=== PATIENT | female | born 1975 | race Caucasian/White ===

== ENCOUNTER 2017-01-04 12:02 | Emergency (ER) | payer BC ==
[2017-01-04] MEDS ORDERED: Ketorolac INJ* 30 MG/ML 1 ML VIAL IV ONE (12:20)
[2017-01-04] MEDS ORDERED: Ondansetron INJ* 2 MG/ML VIAL IV ONE (12:20)
[2017-01-04] MEDS ORDERED: Al Hydrox/Mg Hydrox/Simet LIQ* 30 ML UDC PO ONE (12:25)
[2017-01-04] MEDS ORDERED: Lidocaine 2% VISCOUS* 15 ML UDC PO ONE (12:25)
[2017-01-04] MEDS: NS 0.9% 1000 ML* 2,000 ML IV ONE (12:57)
[2017-01-04 13:11] LABS: Hematocrit 46 % (35-47); Hemoglobin 15.6 g/dl (12.0-16.0); Mean Corpuscular HGB Conc 34 g/dl (31-36); Mean Corpuscular Hemoglobin 30 pg (27-31); Mean Corpuscular Volume 89 fL (80-97); Mean Platelet Volume 9 um3 (7.4-10.4); Red Blood Count 5.18 10^6/ul (4.0-5.4); Red Cell Distribution Width 13 % (10.5-15); White Blood Count 7.9 10^3/ul (3.5-10.8)
[2017-01-04 13:12] LABS: Urine Bilirubin Negative (Negative); Urine Glucose Negative (Negative); Urine Nitrite Negative (Negative)
[2017-01-04 13:26] LABS: ALT 74 U/L (7-52); AST 28 U/L (13-39); Albumin 4.4 g/dL (3.2-5.2); Alkaline Phosphatase 78 U/L (34-104); Anion Gap 6 mmol/L (2-11); BUN/Creatinine Ratio 13.4 (8-20); Blood Urea Nitrogen 11 mg/dL (6-24); C Reactive Protein 2.78 mg/L (< 5.00); CO2 Carbon Dioxide 29 mmol/L (22-32); Chloride 101 mmol/L (101-111); Creatine Kinase 24 U/L (10-223); EGFR African American 99.8 (>60); EGFR Non-African American 77.6 (>60); Globulin 3.5 g/dL (2-4); Glucose 108 mg/dL (70-100); Lipase 34 U/L (11.0-82.0); Potassium 3.7 mmol/L (3.5-5.0); Sodium 136 mmol/L (133-145); Total Protein 7.9 g/dL (6.4-8.9)
--- NOTE | 2017-01-04 13:31 | RAD ---
Indication: Headache, nausea. Cardiac disease with mitral valve regurgitation. Comparison: None. Technique: Upright AP 1230 hours Report: Accounting for superimposed soft tissues the lungs and pleural spaces are clear. Negative for pneumothorax. The heart, pulmonary vasculature, and mediastinal contours are unremarkable. Negative for free air beneath the diaphragm. IMPRESSION: No evidence for acute intrathoracic disease.
[2017-01-04 14:00] LABS: TSH (Thyroid Stimulating Horm) 1.73 mcIU/mL (0.34-5.60)
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
[2017-01-04 16:12] VITALS: BP 125/67
== END 2017-01-04 16:08 | disposition home or self-care (01) ==
LOC: ED 12:02
DX: R10.13 Epigastric pain (principal); R51 Headache; R11.2 Nausea with vomiting, unspecified; R42 Dizziness and giddiness; M54.2 Cervicalgia; H53.8 Other visual disturbances; Z72.0 Tobacco use; R07.9 Chest pain, unspecified
CPT/HCPCS: 36415; 71010; 80053; 81003; 82550; 82553; 83605; 83690; 84443; 84484; 84702; 85025; 85379; 85610; 85730; 86140; 87040; 93005; 96374; 96375; 99283; A9270-GY; J1885; J2405

== ENCOUNTER 2017-11-25 10:51 | Emergency (ER) | payer BC ==
[2017-11-25 11:32] VITALS: BP 117/76
--- NOTE | 2017-11-25 12:35 | UC ---
Throat Pain/Nasal Sukhdev HPI - HPI Summary HPI Summary: SORE THROAT X 6 DAYS + COUGH , CHEST CONGESTION , FEVER, CHILLS, GETTING WORSE TODAY VERY FATIGUE, NECK PAIN , CHLILLS - History of Current Complaint Chief Complaint: UCGeneralIllness Stated Complaint: COUGH,SHOULDER PAIN,BODY ACHES Time Seen by Provider: 11/25/17 11:18 Hx Obtained From: Patient Hx Last Menstrual Period: 11/21/17 Onset/Duration: Gradual Onset, Lasting Days - 6, Still Present Severity: Moderate Pain Intensity: 2 Cough: Nonproductive Associated Signs & Symptoms: Positive: Nasal Discharge, Fever. Negative: Wheezing, Sinus Discomfort, Vomiting, Rash - Allergies/Home Medications Allergies/Adverse Reactions: Allergies Allergy/AdvReac Type Severity Reaction Status Date / Time alcohol Allergy Hives Verified 11/25/17 11:28 diphenhydramine Allergy Tachycardia Verified 11/25/17 11:28 niacin Allergy Flushing Verified 11/25/17 11:31 nitrofurantoin Allergy Unknown Verified 11/25/17 11:31 Reaction Details promethazine [From Phenergan] Allergy Leg Cramps Verified 11/25/17 11:31 Sulfa (Sulfonamide Allergy Unknown Verified 11/25/17 11:31 Antibiotics) Reaction Details decongestants Allergy Intermediate heart races Uncoded 02/22/15 12:01 Home Medications: Home Medications Cholecalciferol (Vitamin D3) [Vitamin D3] 11/25/17 [History] Fenugreek Seed Extract [Fenugreek] 11/25/17 [History] Milk Thistle 150 mg PO 11/25/17 [History] [place]-3 Fatty Acids/Fish Oil [[place] 3 1,000 mg Softgel] 11/25/17 [History] Ondansetron ODT TAB* [Zofran 4 MG Odt TAB*] 11/25/17 [History] Pantoprazole Sodium [Protonix] 11/25/17 [History] Polyethylene Glycol 3350 [Miralax] 11/25/17 [History] Pycnogonol 11/25/17 [History] Sertraline HCl [Zoloft] 50 mg PO 11/25/17 [History] clonazePAM [Klonopin] 0.5 mg PO 11/25/17 [History] PMH/Surg Hx/FS Hx/Imm Hx Previously Healthy: Yes - Surgical History Surgical History: Yes Surgery Procedure, Year, and Place: Lasik eye surgery. TUBES IN EARS - Family History Known Family History: Positive: Hypertension, Diabetes, Other - depression, anxiety, supraventricular tachycardia - Social History Alcohol Use: None Substance Use Type: None Smoking Status (MU): Former Smoker Type: Cigarettes Amount Used/How Often: Some Day Smoker Length of Time of Smoking/Using Tobacco: ON and Off for 10 Years Have You Smoked in the Last Year: No When Did the Patient Quit Smoking/Using Tobacco: ~2007 - Immunization History Most Recent Influenza Vaccination: Not the season Most Recent Tetanus Shot: UTD Review of Systems Constitutional: Fever, Chills, Fatigue Skin: Negative Eyes: Negative ENT: Sore Throat, Nasal Discharge Respiratory: Cough Cardiovascular: Negative Gastrointestinal: Negative Is Patient Immunocompromised?: No All Other Systems Reviewed And Are Negative: Yes Physical Exam Triage Information Reviewed: Yes Appearance: Well-Appearing, No Pain Distress, Well-Nourished Vital Signs: Initial Vital Signs Temp 98.2 F 11/25/17 11:15 Pulse 78 11/25/17 11:15 Resp 16 11/25/17 11:15 BP 117/76 11/25/17 11:15 Pulse Ox 99 11/25/17 11:15 Vital Signs Reviewed: Yes Eyes: Positive: Conjunctiva Clear ENT: Positive: Normal ENT inspection, Hearing grossly normal, Pharynx normal, Nasal congestion, TMs normal Neck: Positive: Supple, Nontender, No Lymphadenopathy Respiratory: Positive: Chest non-tender, Lungs clear, Normal breath sounds Cardiovascular: Positive: RRR, No Murmur, Pulses Normal Abdominal Exam: Normal Abdomen Description: Positive: Nontender, Soft. Negative: CVA Tenderness (R), CVA Tenderness (L), Distended, Guarding Bowel Sounds: Positive: Present Skin Exam: Normal Throat Pain/Nasal Course/Dx - Differential Dx/Diagnosis Provider Diagnoses: VIRAL ILLNESS Discharge - Sign-Out/Discharge Documenting (check all that apply): Discharge - Discharge Plan Condition: Stable Disposition: HOME Patient Education Materials: Viral Syndrome (ED) Forms: *Work Release Referrals: Colt Haque DO [Primary Care Provider] - 5 Days Additional Instructions: NEGATIVE FLU WILL CHECK CBC AND SIMÓN CONT. WITH REST, INCREASE FLUID , TYLENOL NEEDED FOR PAIN AND FEVER FOLLOW UP WITH YOUR PCP IN 5 DAYS IF NOT BETTER - Billing Disposition and Condition Condition: STABLE Disposition: HOME
== END 2017-11-25 12:34 | disposition home or self-care (01) ==
LOC: UCCORT 10:51
DX: B34.9 Viral infection, unspecified (principal); Z88.1 Allergy status to other antibiotic agents; Z88.2 Allergy status to sulfonamides; Z88.8 Allergy status to other drugs, medicaments and biological substances; Z87.891 Personal history of nicotine dependence
CPT/HCPCS: 87502; 99211; G0463

== ENCOUNTER 2019-10-20 08:24 | Emergency (ER) | payer BC ==
--- OUTSIDE RECORDS SUMMARY | 2019-10-20 08:56 | XMS REPORT | Continuity of Care Document ---
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 Unavailable [facility] Allergy & Care Team Information 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 Immunology Problems Active Problems Provider Date Helicobacter pylori Corinne Carbajal MD Onset: 07/20/2012 Panic disorder without agoraphobia Corinne Carbajal MD Onset: 04/20/2012 Overweight Corinne Carbajal MD Onset: 07/08/2011 FH: Cardiovascular disease Corinne Carbajal MD Onset: 01/05/2011 Moderate recurrent major depression Corinne Carbajal MD Onset: 06/26/2010 Mixed hyperlipidemia Corinne Carbajal MD Onset: 07/17/2009 Vitamin D deficiency Corinne Carbajal MD Onset: 07/17/2009 Generalized anxiety disorder Corinne Carbajal MD Onset: 07/17/2009 Pure hypercholesterolemia Colt Haque DO Onset: 10/27/2014 Neck pain Colt Haque DO Onset: 10/28/2014 Viral disease Onset: 08/05/2015 Near syncope Onset: 03/26/2015 Rhabdomyolysis Onset: 03/26/2015 Social History Type Date Description Comments Sex Unknown Tobacco Use Start: Unknown End: Unknown Former Cigarette Smoker ETOH Use Rarely consumes alcohol Tobacco Use Start: Unknown End: Unknown Patient is a former smoker Allergies, Adverse Reactions, Alerts Active Allergies Reaction Severity Comments Date Phenergan Restless Leg Syndrome 07/08/2011 Macrobid 07/08/2011 Dust 04/17/2009 Niacin 04/17/2009 Hay Fever 2014 Mold 2014 Sulfa Drugs 2014 Promethazine HCL 08/05/2015 Nitrofurantoin Macrocrystal 08/05/2015 Sulfa (Sulfonamide Antibiotics) 08/05/2015 Nitrofurantoin 08/05/2015 Almonds 11/06/2018 Cat Dander 11/06/2018 Dog Dander 11/06/2018 Medications Active Medications SIG Qnty Indications Ordering Date Provider Tizanidine HCL take 1 capsule by 10caps Colt Haque, 08/26/2019 2mg mouth as needed DO Capsules for muscle spasm Pkdsr-[id number]-Evax Ethyl Take 2 Capsules 60caps Colt Haque, 07/09/2019 Esters By Mouth Every DO 1gm Capsules Day Sertraline HCL 1 tab by mouth 45tabs Colt aHque, 07/02/2019 100mg every day DO Tablets Mirtazapine 1 po qhs 30tabs Colt Haque, 06/01/2019 7.5mg Tablets DO Famotidine take 1 tablet by 30tabs Colt Haque, 05/18/2019 20mg Tablets mouth daily DO Levocetirizine Take 1 Tablet By 30tabs J30.9 Colt Haque, 01/22/2019 Dihydrochloride Mouth Every Day DO 5mg as Needed Tablets Polyethylene Glycol mix one packet in 84units Colt Haque, 01/04/2019 3350 eight ounces of DO 3350NF Packet water every day as needed for constipation, hold for diarrhea Atorvastatin Calcium Take 1 Tablet By 30tabs Colt Haque, 11/27/2018 10mg Mouth Every Day DO Tablets In The Evening Clonazepam 1 by mouth twice 60tabs Colt Haque, 07/24/2018 0.5mg Tablets a day as needed DO anxiety Metoclopramide HCL take 1 tablet by 28tabs Colt Haque, 07/02/2018 10mg mouth 4 times DO Tablets daily as needed for nausea Ondansetron dissolve one 30tabs Colt Haque, 06/11/2018 4mg Tablets tablet on tongue DO Dispers up to every 8 hours as needed for nausea Pantoprazole Sodium take 1 tablet by 90tabs Colt Haque, 06/26/2017 40mg mouth every day DO Tablets DR Vitamin D3 Complete takes 5000 iu qd 30tabs Colt Haque, 12/27/2016 DO Tablets Alprazolam 1/2 to 1 by mouth 60tabs Colt Haque, 11/09/2015 0.5mg Tablets as needed for DO panic attack Coconut Oil Unknown 1000mg Capsules Desiccated Beef Liver Unknown Powder Magnesium 1 by mouth every Unknown 400mg Tablets day Mometasone Furoate 2 sprays each Unknown nostril every day 50mcg/Act Suspension Diphenhydramine HCL 1 by mouth as Unknown 25mg needed Capsules [place] 3-6-9 Complex Includes Co-q10 Unknown and Red Yeast Capsules Rice Takes one tab bid Saline Nasal [place] 1-2sprays as Unknown 0.65% needed congestion Solution History Medications Zoloft 1 po daily 30tabs Colt Haque DO 09/10/2019 - 100mg Tablets 09/09/2019 Ketoconazole apply to hair 120ml Colt Haque DO 07/30/2019 - 2% Shampoo twice a week for 08/29/2019 up to 4 weeks Fluconazole 1 by mouth x 1, 2tabs Colt Haque, 07/13/2019 - 150mg Tablets then repeat again 07/18/2019 5 days later if needed. Doxycycline 1 by mouth twice 14tabs Colt Haque DO 06/18/2019 - Monohydrate a day 06/25/2019 100mg Tablets Hydroxyzine HCL take one by mouth 30tabs Colt Haque DO 06/07/2019 - 10mg tid as needed for 07/09/2019 Tablets anxiety Sertraline HCL 1 by mouth every 30tabs Colt Haque DO 06/04/2019 - 50mg day 07/02/2019 Tablets Propranolol HCL 1 by mouth twice 60tabs Colt Haque DO 05/21/2019 - 20mg a day 06/02/2019 Tablets Drospirenone-Ethinyl 1 by mouth every 28tabs Colt Haque DO 2018 - Estradiol day 07/30/2019 3-0.02mg Tablets Duloxetine HCL Take 1 Capsule By Colt Llanos, DO 03/26/2019 - 20mg Caps Mouth Every Day 05/25/2019 DR Ayoub Immunizations CPT Code Status Date Vaccine Lot # [id number] Given 07/22/2018 Influenza Vac, Quadrivalent, Split, 0.5mL Dosage, Im Use [id number] Given 07/05/2016 Flu Vaccine NOS 35006 Given 11/25/2014 Tdap (Adacel) Ages 7 And Above Only 48498 Given 11/25/2014 Tdap (Adacel) Ages 7 And Above Only [id number] Given 05/19/2012 Afluria Or Fluvirin Flu Vac Intramuscular 36362 Given 07/08/2011 Afluria Or Fluvirin Flu Vac Intramuscular 52183 Given 07/01/2010 Afluria Or Fluvirin Flu Vac Intramuscular Vital Signs Date Vital Result Comment 09/24/2019 4:49pm Heart Rate 78 /min BP Systolic 124 mmHg BP Diastolic 74 mmHg Respiratory Rate 18 /min 09/10/2019 4:42pm Heart Rate 88 /min BP Systolic 126 mmHg BP Diastolic 76 mmHg Respiratory Rate 18 /min O2 % BldC Oximetry 98 % Ra Results Test Acquired Date Facility Test Result H/L Range Note GC/Chlamydia 07/15/2019 [facility] GCCHL Disclaimer (SEE NOTE) 1, 2 Amplified Rna Chlamydia trachomatis Geraldine Negative Negative Neisseria gonorrhoeae (GC) Geraldine Negative Negative Laboratory test 07/15/2019 [facility] Gardnerella/Yeast: SEE RESULT 3 finding Vaginal Dna BELOW CBC with Auto 05/24/2019 [facility] White Blood Count 7.0 K/uL Normal 3.1- 4 Diff-fcmg (315)- - 10.7 Red Blood Count 4.44 M/uL Normal 3.90-5.40 Hemoglobin 13.6 gm/dL Normal 11.6-15.8 Hematocrit 40.6 % Normal 36.0-46.1 Mean Cell Volume 91.4 fl Normal 80.9-99.0 Mean Corpuscular HGB 30.6 pg Normal 25.9-32.7 Mean Corpuscular HGB Conc 33.5 g/dL Normal 30.8-34.3 Platelet Count 324 K/uL Normal 155-360 Red Cell Distri Width SD 40.4 fl Normal 36-47 Red Cell Distri Width %CV 12.1 % Normal 11.7-14.4 Mean Platelet Volume 11.1 fl Normal 8.9-12.4 Neut% 55.3 % Normal 40.4-72.8 Lymph % 36.0 % Normal 20.0-42.0 Beltrami % 6.4 % Normal 4.3-13.2 Eo% 1.6 % Normal 0.0-6.6 Bas% 0.6 % Normal 0.0-1.1 Immature Grans 0.1 % Normal 0.0-5.0 NRBC % 0.0 /100WBC < 10/ 100 WBC Neut# 3.87 K/uL Normal 1.8-7.0 Lymph # 2.52 K/uL Normal 1.0-4.0 Beltrami # 0.45 K/uL Normal 0.3-0.9 Eos # 0.11 K/uL Normal 0.0-0.5 Baso # 0.04 K/uL Normal 0.0-0.1 Immature Grans Absolute 0.01 K/uL NRBC # 0.00 K/uL Comprehensive 05/24/2019 [facility] Glucose 94 mg/dL Normal 74-106 Metabolic Panel (315)- - BUN 13 mg/dL Normal 7-18 Creatinine 0.8 mg/dL Normal 0.6-1.3 Glom Filtration Rate, Estimate >60 mL/min >60 If >60 mL/min >60 5 BUN/Creat 16.2 ratio Sodium 140 mmol/L Normal 136-145 Potassium 4.0 mmol/L Normal 3.5-5.1 Chloride 105 mmol/L Normal 98-107 Carbon Dioxide 27 mmol/L Normal 21-32 Anion Gap 8 mEq/L Normal 8-16 Calcium 9.5 mg/dL Normal 8.5-10.1 Total Protein 7.5 g/dL Normal 6.4-8.2 Albumin 3.6 g/dL Normal 3.4-5.0 Globulin 3.9 g/dL Normal 1.9-4.3 Alb/Glob 0.9 ratio Bilirubin,Total 0.3 mg/dL Normal 0.2-1.0 Sgot/Ast 11 U/L Low 15-37 6 SGPT/Alt 22 U/L Normal 12-78 Alkaline Phosphatase 67 U/L Normal 45-117 Laboratory test 05/24/2019 [facility] Magnesium 2.1 mg/ dL Normal 1.8-2.4 finding (315)- - LDL Cholesterol 05/24/2019 [facility] Cholesterol 195 mg/ dL <200 7 Profile (315)- - Triglycerides 345 mg/dL High <150 8 HDL Cholesterol 52 mg/dL >40 9 LDL-Cholesterol 74 mg/dL < 100 10 Laboratory 05/24/2019 [facility] Thyroid 3.89 uIU/mL Normal 0.30-4.20 test finding (315)- - Stim Hormone Laboratory 05/24/2019 [facility] Vitamin 29.9 ng/mL Low 30.0-100.0 11 test finding (315)- - D,25-Hydrox y Laboratory 05/24/2019 [facility] Cortisol,Ra 46.2 g/dL . 12 test finding (315)- - ndom Laboratory 04/12/2019 [facility] 13 test finding [phone] Allia <SEE NOTE> Laboratory 04/12/2019 [facility] Pap Smear SEE NOTE 14 test finding Thin Prep 1 [id number] 2 As with all diagnostic procedures, the laboratory results obtained should be used in conjunction with other clinical information available to the physician, including confirmation by another method, as applicable. 3 SEE RESULT BELOW Name: THU VELASQUEZ : [address]: Colt Haque DO Acct: [id number] Unit: [id number] AGE: 43 Location: [facility] Re07/15/19 SEX: F Status: REG REF SPEC: [id number] DEANNA: 07/15/[address]: Colt Haque DO REQ: [id number] RECD: 07/15/19 STATUS:COMP _ [facility]: Pedrito,Yeast DNA, Trich DNA COMMENTS: [id number] QUERIES: Would you like to order Trichomonas Vaginalis testing? Yes Procedure Result Reported Site Gardnerella/Yeast: Vaginal DNA Final 07/16/19- 1349 ML Organism 1 POSITIVE GARDNERELLA Organism 2 Negative Pamela The presence of G. vaginalis, although suggestive, is not diagnostic for bacterial vaginosis. Results should be interpreted in conjuction with other clinical and laboratory data available. Women with vaginal discharge should be evaluated for risk factors of cervicitis and pelvic inflammatory disease, toxic shock syndrome (S.aureus), and if present, evaluated for organisms not included in this assay such as N. gonorrhoeae, C. trachomatis, Mobiluncus, Mycoplasma and/or Prevotella. Mixed infections may occur. The performance of this test on patient specimens collected during or immediately after antimicrobial therapy is unknown. The presence or absence of Pamela species, or G. vaginalis cannot be used as a test for therapeutic success or failure. Trichomonas: Vaginal DNA Probe Final 07/16/19- 1349 ML Organism 1 Negative Trichomonas CONTINUED ON NEXT PAGE DEPARTMENT OF PATHOLOGY, [address] [place] [address] Efrain Chen M.D. Director GET # [id number] Patient: THU VELASQUEZ [id number] (Continued) Specimen: [id number] Collected: 07/15/19 Received: 07/15/19 (Continued) Procedure Result Reported Site Trichomonas: Vaginal DNA Probe Final (continued) 07/16/19 3221 The presence or absence of T. vaginalis cannot be used as a test for therapeutic success or failure. * ML - Main Lab . END OF REPORT DEPARTMENT OF PATHOLOGY, [address] [place] [address] Efrain Chen M.D. Director [facility] # [id number] 4 I95.9 5 Note: Persistent reduction for 3 months or more in an eGFR <60 mL/min/1.73 m2 defines CKD. Patients with eGFR values >/=60 mL/min/1.73 m2 may also have CKD if evidence of persistent proteinuria is present. The original MDRD equation for estimated GFR is not valid for patients less than 18 years of age. Additional information may be found at www.kdoqi.org. 6 Values below the stated reference ranges of AST and ALT can be seen in normal populations. Clinical correlation is suggested. 7 Reference Guidelines*: Desirable: ........... < 200 mg/dL Borderline High: ..... 200-239 mg/dL High: ................ >= 240 mg/dL * The National Cholesterol Education Program (NCEP) 8 Reference Guidelines*: Normal: ............. < 150 mg/dL Borderline High: .... 150-199 mg/dL High: ............... 200-499 mg/dL Very High: .......... > 500 mg/dL * Source: National Cholesterol Education Program (NCEP) 9 Reference Guidelines*: Low HDL: ..... < 40 mg/dL Normal: ..... 40-60 mg/dL Desirable: ... > 60 mg/dL *The National Cholesterol Education Program(NCEP) 10 Reference Guidelines*: Optimal:........... <100 mg/dL Near Optimal....... 100-129 mg/dL Borderline High.... 130-159 mg/dL High............... 160-189 mg/dL Very High.......... >=190 mg/dL * Source: National Cholesterol Education Program (NCEP) 11 Vitamin D deficiency has been defined by the [place] of [employer] and an Endocrine Society practice guideline as a level of serum 25-OH vitamin D less than 20 ng/mL (1,2). The Endocrine Society went on to further define vitamin D insufficiency as a level between 21 and 29 ng/mL (2). 1. IOM ([place] [employer]). 2010. Dietary reference intakes for calcium and D. [place]: The National Academies Press. 2. Jordin MORE, Philip PERDUE, Verna SMITH, et al. Evaluation, treatment, and prevention of vitamin D deficiency: an Endocrine Society clinical practice guideline. JCEM. 2010; 96(7):1911-30. Performed at: RN - [facility] [address] [id number] [employer]: Jackie Krishna MD, Phone: [phone] Cortisol AM 6.2 - 19.4 Cortisol PM 2.3 - 11.9 Performed at: RN - [facility] [address] [id number] [employer]: Jackie Krishna MD, Phone: [phone] [address] [place] [address] Amplified Molecular High Risk HPV Test Patient Name:THU VELASQUEZ Patient :1975 Ordering Physician:[place] Accession Number [id number] Specimen(s) Received A: High Risk HPV Thin Prep Cervical Pap Smear - One Vial Other Case Numbers: [id number] Diagnosis RISK GROUPS RESULTS High Risk NEGATIVE Tested for HPV Types (16, 18, 31, 33, 35, 39, 45, 51, 52, 56, 58, 59, 66, 68) Reported: 04/15/2019 09:20 Electronically Signed Out By Mag Wheeler blas Derek Napieres 14 [facility] [employer] [facility]. [facility] [place] [address] CYTOLOGY REPORT Source of Specimen(s): Thin Prep Cervical Pap Smear - One Vial Date of Last Menstrual Period: 03/08/19 Other Clinical Conditions: Last Smear Date: 08/2017 Normal HPV ASSAY REQUESTED Specimen Adequacy SATISFACTORY FOR EVALUATION ABSENCE OF ENDOCERVICAL/TRANSFORMATION ZONE COMPONENT General Categorization NEGATIVE FOR INTRAEPITHELIAL LESION OR MALIGNANCY Interpretation NEGATIVE FOR INTRAEPITHELIAL LESION OR MALIGNANCY Endometrial cells Comment HPV testing will be performed and a separate report will be issued. Reported: 04/14/2019 10:00 Electronically Signed Out By Vonnie Madden CT(ASCP) dandy Benson CT(ASCP) DANDY ICD9 Code: Z01.419 CPT code: A: DX692E QC Reviewed: Y Unless otherwise specified, testing performed by [address] [id number] Procedures Date Code Description Status 09/24/2019 60605 Omt 3-4 Body Regions Completed 09/10/2019 85542 Omt 3-4 Body Regions Completed 08/20/2019 61312 Omt 3-4 Body Regions Completed 07/30/2019 47005 Omt 3-4 Body Regions Completed 07/09/2019 23691 Omt 3-4 Body Regions Completed 06/18/2019 31213 Omt 3-4 Body Regions Completed 05/21/2019 19685 Omt 3-4 Body Regions Completed 04/29/2019 98502 Omt 3-4 Body Regions Completed 03/26/2019 78829 Omt 3-4 Body Regions Completed 01/06/2019 [id number] Mammogram Completed 02/12/2017 [id number] Colonoscopy Completed Medical Devices Description No Information Available Encounters Type Date Location Provider Dx Diagnosis Office Visit 09/24/2019 [facility] Colt Haque DO F33.1 Major depressive 4:15p disorder, recurrent, moderate F41.0 Panic disorder [episodic paroxysmal anxiety] R00.0 Tachycardia, unspecified I95.9 Hypotension, unspecified R06.02 Shortness of breath J32.9 Chronic sinusitis, unspecified M54.2 Cervicalgia E78.2 Mixed hyperlipidemia M99.01 Segmental and somatic dysfunction of cervical region I34.1 Nonrheumatic mitral (valve) prolapse K59.00 Constipation, unspecified K21.9 Gastro-esophageal reflux disease without esophagitis F41.1 Generalized anxiety disorder Office Visit 08/20/2019 4:15p [facility] Colt Haque DO F41.1 Generalized anxiety disorder F41.0 Panic disorder [episodic paroxysmal anxiety] F33.1 Major depressive disorder, recurrent, moderate Z87.891 Personal history of nicotine dependence G47.9 Sleep disorder, unspecified M99.01 Segmental and somatic dysfunction of cervical region R00.0 Tachycardia, unspecified I95.9 Hypotension, unspecified E78.2 Mixed hyperlipidemia J32.9 Chronic sinusitis, unspecified M99.07 Segmental and somatic dysfunction of upper extremity M54.2 Cervicalgia R06.02 Shortness of breath K21.9 Gastro-esophageal reflux disease without esophagitis K59.00 Constipation, unspecified I34.1 Nonrheumatic mitral (valve) prolapse L21.9 Seborrheic dermatitis, unspecified Office Visit 07/30/2019 4:15p [facility] Colt Haque DO F41.1 Generalized anxiety disorder F41.0 Panic disorder [episodic paroxysmal anxiety] F33.1 Major depressive disorder, recurrent, moderate R00.0 Tachycardia, unspecified I95.9 Hypotension, unspecified E78.2 Mixed hyperlipidemia R06.02 Shortness of breath K21.9 Gastro-esophageal reflux disease without esophagitis K59.00 Constipation, unspecified M99.01 Segmental and somatic dysfunction of cervical region M99.00 Segmental and somatic dysfunction of head region M99.07 Segmental and somatic dysfunction of upper extremity I34.1 Nonrheumatic mitral (valve) prolapse M54.2 Cervicalgia L21.9 Seborrheic dermatitis, unspecified Office Visit 07/09/2019 4:15p [facility] Colt Haque DO F41.1 Generalized anxiety disorder F41.0 Panic disorder [episodic paroxysmal anxiety] F33.1 Major depressive disorder, recurrent, moderate R00.0 Tachycardia, unspecified I95.9 Hypotension, unspecified E78.2 Mixed hyperlipidemia R06.02 Shortness of breath K21.9 Gastro-esophageal reflux disease without esophagitis K59.00 Constipation, unspecified M99.01 Segmental and somatic dysfunction of cervical region M99.00 Segmental and somatic dysfunction of head region M99.07 Segmental and somatic dysfunction of upper extremity I34.1 Nonrheumatic mitral (valve) prolapse M54.2 Cervicalgia Z68.28 Body mass index (BMI) 28.0-28.9, adult Office Visit 06/18/2019 4:15p [facility] Colt Haque DO F41.1 Generalized anxiety disorder F41.0 Panic disorder [episodic paroxysmal anxiety] F33.1 Major depressive disorder, recurrent, moderate R00.0 Tachycardia, unspecified I95.9 Hypotension, unspecified E78.2 Mixed hyperlipidemia R06.02 Shortness of breath K21.9 Gastro-esophageal reflux disease without esophagitis K59.00 Constipation, unspecified I34.1 Nonrheumatic mitral (valve) prolapse M54.2 Cervicalgia M72.2 Plantar fascial fibromatosis H81.10 Benign paroxysmal vertigo, unspecified ear G47.00 Insomnia, unspecified M99.01 Segmental and somatic dysfunction of cervical region J01.90 Acute sinusitis, unspecified Z68.28 Body mass index (BMI) 28.0-28.9, adult Office Visit 06/04/2019 4:15p [facility] Colt Haque DO F41.1 Generalized anxiety disorder F41.0 Panic disorder [episodic paroxysmal anxiety] F33.1 Major depressive disorder, recurrent, moderate R00.0 Tachycardia, unspecified I95.9 Hypotension, unspecified E78.2 Mixed hyperlipidemia R06.02 Shortness of breath K21.9 Gastro-esophageal reflux disease without esophagitis K59.00 Constipation, unspecified I34.1 Nonrheumatic mitral (valve) prolapse M54.2 Cervicalgia M72.2 Plantar fascial fibromatosis H81.10 Benign paroxysmal vertigo, unspecified ear G47.00 Insomnia, unspecified 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 M99.01 Segmental and somatic dysfunction of cervical region Z68.28 Body mass index (BMI) 28.0-28.9, adult Office Visit 05/21/2019 4:15p [facility] Colt Haque DO F41.1 Generalized anxiety disorder F41.0 Panic disorder [episodic paroxysmal anxiety] F33.1 Major depressive disorder, recurrent, moderate R00.0 Tachycardia, unspecified I95.9 Hypotension, unspecified E78.2 Mixed hyperlipidemia R06.02 Shortness of breath K21.9 Gastro-esophageal reflux disease without esophagitis K59.00 Constipation, unspecified M99.01 Segmental and somatic dysfunction of cervical region I34.1 Nonrheumatic mitral (valve) prolapse M54.2 Cervicalgia M72.2 Plantar fascial fibromatosis H81.10 Benign paroxysmal vertigo, unspecified ear Z68.28 Body mass index (BMI) 28.0-28.9, adult Office Visit 04/12/2019 8:30a [facility] Low Gómez PA Z01.419 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 (general) (routine) w/o abn findings F33.1 Major depressive disorder, recurrent, moderate Office Visit 03/26/2019 4:15p [facility] Colt Haque DO F41.1 Generalized anxiety disorder F41.0 Panic disorder [episodic paroxysmal anxiety] F33.1 Major depressive disorder, recurrent, moderate R00.0 Tachycardia, unspecified I95.9 Hypotension, unspecified E78.2 Mixed hyperlipidemia R06.02 Shortness of breath K21.9 Gastro-esophageal reflux disease without esophagitis K59.00 Constipation, unspecified M99.01 Segmental and somatic dysfunction of cervical region I34.1 Nonrheumatic mitral (valve) prolapse M54.2 Cervicalgia H81.10 Benign paroxysmal vertigo, unspecified ear Z68.28 Body mass index (BMI) 28.0-28.9, adult Assessments Date Code Description Provider 09/24/2019 F33.1 Major depressive disorder, recurrent, moderate Colt Haque, 09/24/2019 F41.0 Panic disorder [episodic paroxysmal anxiety] Colt Haque , 09/24/2019 R00.0 Tachycardia, unspecified Colt Haque, 09/24/2019 I95.9 Hypotension, unspecified HaqueColt blackburn, DO 09/24/2019 R06.02 Shortness of breath Colt Haque, 09/24/2019 J32.9 Chronic sinusitis, unspecified Colt Haque, DO 09/24/2019 M54.2 Cervicalgia Colt Haque, 09/24/2019 E78.2 Mixed hyperlipidemia Colt Haque, DO 09/24/2019 M99.01 Segmental and somatic dysfunction of cervical Haque, Colt, DO region 09/24/2019 I34.1 Nonrheumatic mitral (valve) prolapse Haque, Colt, DO 09/24/2019 K59.00 Constipation, unspecified Haque, Colt, DO 09/24/2019 K21.9 Gastro-esophageal reflux disease without Haque, Colt, DO esophagitis 09/24/2019 F41.1 Generalized anxiety disorder Haque, Colt, DO 09/10/2019 F33.1 Major depressive disorder, recurrent, moderate Haque, Colt, DO 09/10/2019 F41.0 Panic disorder [episodic paroxysmal anxiety] Haque, Colt , DO 09/10/2019 R00.0 Tachycardia, unspecified Haque, Colt, DO 09/10/2019 I95.9 Hypotension, unspecified Haque, Colt, DO 09/10/2019 R06.02 Shortness of breath Haque Colt, DO 09/10/2019 J32.9 Chronic sinusitis, unspecified Haque, Colt, DO 09/10/2019 G47.9 Sleep disorder, unspecified Haque, Colt, DO 09/10/2019 L21.9 Seborrheic dermatitis, unspecified Haque, Colt, DO 09/10/2019 M54.2 Cervicalgia Haque, Colt, DO 09/10/2019 E78.2 Mixed hyperlipidemia Haque, Colt, DO 09/10/2019 M26.601 RIGHT temporomandibular joint disorder, Haque, Colt, DO unspecified 09/10/2019 M99.01 Segmental and somatic dysfunction of cervical Haque, Colt, DO region 09/10/2019 I34.1 Nonrheumatic mitral (valve) prolapse HaqueColt, DO 09/10/2019 K59.00 Constipation, unspecified Haque, Colt, DO 09/10/2019 K21.9 Gastro-esophageal reflux disease without Haque, Colt, DO esophagitis 09/10/2019 F41.1 Generalized anxiety disorder HaqueColt, DO 08/20/2019 F41.1 Generalized anxiety disorder Haque, Colt, DO 08/20/2019 F41.0 Panic disorder [episodic paroxysmal anxiety] Haque, Colt , DO 08/20/2019 F33.1 Major depressive disorder, recurrent, moderate Haque, Colt, DO 08/20/2019 Z87.891 Personal history of nicotine dependence Colt Haque, DO 08/20/2019 G47.9 Sleep disorder, unspecified Haque, Colt, DO 08/20/2019 M99.01 Segmental and somatic dysfunction of cervical HaqueColt, DO region 08/20/2019 R00.0 Tachycardia, unspecified Haque, Colt, DO 08/20/2019 I95.9 Hypotension, unspecified Haque, Colt, DO 08/20/2019 E78.2 Mixed hyperlipidemia Haque, Colt, DO 08/20/2019 J32.9 Chronic sinusitis, unspecified Haque, Colt, DO 08/20/2019 M99.07 Segmental and somatic dysfunction of upper Haque, Colt , DO extremity 08/20/2019 M54.2 Cervicalgia Colt aHque, DO 08/20/2019 R06.02 Shortness of breath Colt Haque, DO 08/20/2019 K21.9 Gastro-esophageal reflux disease without Haque, Colt, DO esophagitis 08/20/2019 K59.00 Constipation, unspecified Haque, Colt, DO 08/20/2019 I34.1 Nonrheumatic mitral (valve) prolapse Colt Haque, DO 08/20/2019 L21.9 Seborrheic dermatitis, unspecified Haque, Colt, DO 07/30/2019 F41.1 Generalized anxiety disorder HaqueSaurabhew, DO 07/30/2019 F41.0 Panic disorder [episodic paroxysmal anxiety] HaqueColt , DO 07/30/2019 F33.1 Major depressive disorder, recurrent, moderate Haque, Colt, DO 07/30/2019 R00.0 Tachycardia, unspecified Haque, Colt, DO 07/30/2019 I95.9 Hypotension, unspecified Haque, Colt, DO 07/30/2019 E78.2 Mixed hyperlipidemia Haque, Colt, DO 07/30/2019 R06.02 Shortness of breath HaqueColt, DO 07/30/2019 K21.9 Gastro-esophageal reflux disease without Haque, Colt, DO esophagitis 07/30/2019 K59.00 Constipation, unspecified Haque, Colt, DO 07/30/2019 M99.01 Segmental and somatic dysfunction of cervical HaqueColt blackburn, region 07/30/2019 M99.00 Segmental and somatic dysfunction of head HaqueColt blackburn, DO region 07/30/2019 M99.07 Segmental and somatic dysfunction of upper HaqueColt blackburn , DO extremity 07/30/2019 I34.1 Nonrheumatic mitral (valve) prolapse Colt Haque, DO 07/30/2019 M54.2 Cervicalgia Colt Haque, DO 07/30/2019 L21.9 Seborrheic dermatitis, unspecified HaqueColt blackburn, DO 07/09/2019 F41.1 Generalized anxiety disorder Colt Haque, DO 07/09/2019 F41.0 Panic disorder [episodic paroxysmal anxiety] Colt Haque , DO 07/09/2019 F33.1 Major depressive disorder, recurrent, moderate Colt Haque, DO 07/09/2019 R00.0 Tachycardia, unspecified Colt Haque, DO 07/09/2019 I95.9 Hypotension, unspecified Colt Haque, DO 07/09/2019 E78.2 Mixed hyperlipidemia Colt Haque, DO 07/09/2019 R06.02 Shortness of breath Colt Haque, DO 07/09/2019 K21.9 Gastro-esophageal reflux disease without HaqueColt, DO esophagitis 07/09/2019 K59.00 Constipation, unspecified Colt Haque, DO 07/09/2019 M99.01 Segmental and somatic dysfunction of cervical HaqueColt blackburn, region 07/09/2019 M99.00 Segmental and somatic dysfunction of head HaqueColt blackburn, DO region 07/09/2019 M99.07 Segmental and somatic dysfunction of upper HaqueColt blackburn , extremity 07/09/2019 I34.1 Nonrheumatic mitral (valve) prolapse Colt Haque, DO 07/09/2019 M54.2 Cervicalgia Colt Haque, DO 07/09/2019 Z68.28 Body mass index (BMI) 28.0-28.9, adult Colt Haque, DO 06/18/2019 F41.1 Generalized anxiety disorder Colt Haque, DO 06/18/2019 F41.0 Panic disorder [episodic paroxysmal anxiety] HaqueColt blackburn , DO 06/18/2019 F33.1 Major depressive disorder, recurrent, moderate Haque, Colt, DO 06/18/2019 R00.0 Tachycardia, unspecified Haque, Colt, DO 06/18/2019 I95.9 Hypotension, unspecified Haque, Colt, DO 06/18/2019 E78.2 Mixed hyperlipidemia Haque, Colt, DO 06/18/2019 R06.02 Shortness of breath Haque, Colt, DO 06/18/2019 K21.9 Gastro-esophageal reflux disease without Haque, Colt, DO esophagitis 06/18/2019 K59.00 Constipation, unspecified Haque, Colt, DO 06/18/2019 I34.1 Nonrheumatic mitral (valve) prolapse Haque, Colt, DO 06/18/2019 M54.2 Cervicalgia HaqueColt, DO 06/18/2019 M72.2 Plantar fascial fibromatosis Haque, Colt, DO 06/18/2019 H81.10 Benign paroxysmal vertigo, unspecified ear Haque, Colt , DO 06/18/2019 G47.00 Insomnia, unspecified Haque, Colt, DO 06/18/2019 M99.01 Segmental and somatic dysfunction of cervical Haque, Colt, DO region 06/18/2019 J01.90 Acute sinusitis, unspecified Haque, Colt, DO 06/18/2019 Z68.28 Body mass index (BMI) 28.0-28.9, adult HaqueColt, DO 06/04/2019 F41.1 Generalized anxiety disorder Haque, Colt, DO 06/04/2019 F41.0 Panic disorder [episodic paroxysmal anxiety] Haque, Colt , DO 06/04/2019 F33.1 Major depressive disorder, recurrent, moderate Haque, Colt, DO 06/04/2019 R00.0 Tachycardia, unspecified Haque, Colt, DO 06/04/2019 I95.9 Hypotension, unspecified Haque, Colt, DO 06/04/2019 E78.2 Mixed hyperlipidemia Haque, Colt, DO 06/04/2019 R06.02 Shortness of breath Haque Colt, DO 06/04/2019 K21.9 Gastro-esophageal reflux disease without Haque, Colt, DO esophagitis 06/04/2019 K59.00 Constipation, unspecified HaqueColt blackburn, DO 06/04/2019 I34.1 Nonrheumatic mitral (valve) prolapse Colt Haque, DO 06/04/2019 M54.2 Cervicalgia HaqueColt blackburn, DO 06/04/2019 M72.2 Plantar fascial fibromatosis Colt Haque, DO 06/04/2019 H81.10 Benign paroxysmal vertigo, unspecified ear HaqueColt , DO 06/04/2019 G47.00 Insomnia, unspecified HaqueColt, DO 06/04/2019 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 Colt Haque, DO 06/04/2019 M99.01 Segmental and somatic dysfunction of cervical Colt Haque, region 06/04/2019 Z68.28 Body mass index (BMI) 28.0-28.9, adult Colt Haque, DO 05/21/2019 F41.1 Generalized anxiety disorder Colt Haque, DO 05/21/2019 F41.0 Panic disorder [episodic paroxysmal anxiety] Colt Haque , DO 05/21/2019 F33.1 Major depressive disorder, recurrent, moderate HaqueColt blackburn, DO 05/21/2019 R00.0 Tachycardia, unspecified HaqueCotl blackubrn, DO 05/21/2019 I95.9 Hypotension, unspecified HaqueColt blackburn, DO 05/21/2019 E78.2 Mixed hyperlipidemia Colt Haque, DO 05/21/2019 R06.02 Shortness of breath Colt Haque, DO 05/21/2019 K21.9 Gastro-esophageal reflux disease without HaqueColt, esophagitis 05/21/2019 K59.00 Constipation, unspecified HaqueColt, DO 05/21/2019 M99.01 Segmental and somatic dysfunction of cervical Colt Haque, region 05/21/2019 I34.1 Nonrheumatic mitral (valve) prolapse Colt Haque, DO 05/21/2019 M54.2 Cervicalgia Colt Haque, DO 05/21/2019 M72.2 Plantar fascial fibromatosis Colt Haque, DO 05/21/2019 H81.10 Benign paroxysmal vertigo, unspecified ear Haque, Colt , DO 05/21/2019 Z68.28 Body mass index (BMI) 28.0-28.9, adult Colt Haque, 04/29/2019 F41.1 Generalized anxiety disorder Colt Haque, DO 04/29/2019 F41.0 Panic disorder [episodic paroxysmal anxiety] Colt Haque , DO 04/29/2019 F33.1 Major depressive disorder, recurrent, moderate Colt Haque, DO 04/29/2019 R00.0 Tachycardia, unspecified Colt Haque, DO 04/29/2019 I95.9 Hypotension, unspecified HaqueColt blackburn, DO 04/29/2019 E78.2 Mixed hyperlipidemia Colt Haque, DO 04/29/2019 R06.02 Shortness of breath Colt Haque, DO 04/29/2019 K21.9 Gastro-esophageal reflux disease without Colt Haque DO esophagitis 04/29/2019 K59.00 Constipation, unspecified Colt Haque, 04/29/2019 M99.01 Segmental and somatic dysfunction of cervical Colt Haque DO region 04/29/2019 M99.07 Segmental and somatic dysfunction of upper Colt Haque DO extremity 04/29/2019 M99.00 Segmental and somatic dysfunction of head Colt Haque DO region 04/29/2019 I34.1 Nonrheumatic mitral (valve) prolapse Colt Haque DO 04/29/2019 M54.2 Cervicalgia Colt Haque, 04/29/2019 H81.10 Benign paroxysmal vertigo, unspecified ear Colt Haque , 04/29/2019 M72.2 Plantar fascial fibromatosis Colt Haque, 04/29/2019 Z68.28 Body mass index (BMI) 28.0-28.9, adult Colt Haque DO 04/12/2019 Z01.419 Encounter for gynecological examination Low Gómez PA (general) (routine) without abnormal findings 04/12/2019 F33.1 Major depressive disorder, recurrent, moderate Low Gómez PA 03/26/2019 F41.1 Generalized anxiety disorder Colt Haque, 03/26/2019 F41.0 Panic disorder [episodic paroxysmal anxiety] Colt Haque DO 03/26/2019 F33.1 Major depressive disorder, recurrent, moderate Colt Haque, 03/26/2019 R00.0 Tachycardia, unspecified Colt Haque, DO 03/26/2019 I95.9 Hypotension, unspecified Clot Haque DO 03/26/2019 E78.2 Mixed hyperlipidemia HaqueColt blackburn DO 03/26/2019 R06.02 Shortness of breath Colt Haque DO 03/26/2019 K21.9 Gastro-esophageal reflux disease without HaqueColt DO esophagitis 03/26/2019 K59.00 Constipation, unspecified Haque Colt, DO 03/26/2019 M99.01 Segmental and somatic dysfunction of cervical Colt Haque DO region 03/26/2019 I34.1 Nonrheumatic mitral (valve) prolapse Colt Haque DO 03/26/2019 M54.2 Cervicalgia Colt Haque DO 03/26/2019 H81.10 Benign paroxysmal vertigo, unspecified ear Colt Haque , 03/26/2019 Z68.28 Body mass index (BMI) 28.0-28.9, adult Colt Haque DO Plan of Treatment Future Appointment(s):01/14/2020 4:15 pm - Colt Haque DO at [facility]12/24/2019 4:15 pm - Colt Haque DO at [facility]12/10/2019 4:15 pm - Colt Haque DO at [facility]11/12/2019 4:15 pm - Colt Haque DO at [facility]10/29/2019 4:15 pm - Colt Haque DO at [facility]09/24/2019 - Colt Haque DOF33.1 Major depressive disorder, recurrent, moderateComments:Would like her to take Clonazepam 0.5 mg 1 /2 a pill po in the AM. Will see how she does at her nextappt. I told her that she can use alprazolam 0.5 mg 1/2 a pill up to TID prn. Encouraged the patient to see a counselor. Will continue Sertraline 100 mg as she appears to be doing a little better on this.Follow up:Follow up as scheduled.F41.0 Panic disorder [episodic paroxysmal anxiety]Comments:Anxiety appears to be stable. I would like her to take Clonazepam 0.5 mg 1 pill po in the AM. Willsee how she does at her next appt. I told her that she can use alprazolam 0.5 mg 1/2 a pill up to TID prn, but will try to avoid this. Encouraged the patient to see the counselor. Will continue Sertraline 150 mg as she is doing a little better on this. She would like a referral for medical marijuana. She will call with where she would like to go for this.R00.0 Tachycardia, unspecifiedComments:: Pt appears to have sinus tachycardia. I told her that this is most likely due to her anxiety. This was seen on an event recorder. I would like her to try to control her anxiety first to see if this helps. She was interested in trying something like metoprolol, which may help, but I am concernedthis would lower her BP. Will monitor BP closely, may come down if the sertraline helps her with the anxiety. Advised the patient to follow up with Dr. Osorio.I95.9 Hypotension, unspecifiedComments:I am concerned about her hypotension. Not present on exam today. She reports that this is common and is causing lightheadedness. I told her that this could be related to her meds, mostly her Benzos. I want her to make sure she drinks enough fluids and will monitor. I think some of this can be related to her anxiety.R06.02 Shortness of breathComments:SOB is causing her some problems. PFT was done and she thinks this was normal. Likely due to anxiety. She appears to hyperventilate at times.J32.9 Chronic sinusitis, unspecifiedComments:Improved at the present time. Will continue to monitor.M54.2 CervicalgiaComments:Pt has cervical spine pain. She had a normal c-spine x-ray in the past. MRI showed that her c-spine and t-spine were normal except for muscle spasm. X-rays did not show anything more significant. Ibelieve all of this pain is due to spasm in her neck and upper back region. This causes her to havepanic attacks at times. She did a little better with the Tizanidine, but did not want to continue taking this with her elevated LFTs in the past when she was on this. I told her to use heat to the area. Will monitor this and have her call with worsening. Will see her back in a few weeks. She will call or come into the office with any problems or concerns.E78.2 Mixed hyperlipidemiaComments:LDL is well controlled. Even though her 10 year risk is low, she is concerned about this due to family history. She would like to take Atorvastatin 10 mg po daily to limit her risk, but may be havingsome weakness with this. Will also use [place]-3's for this. She will continue as long as she can tolerate this and will likely check labs soon.M99.01 Segmental and somatic dysfunction of cervical regionComments:3 areas- head, cervical, and upper extremities- treated with OMT as noted hsozwN13.1 Nonrheumatic mitral (valve) prolapseComments:Pt has a history of MVP. Echo in 2018 showed no significant valvular abnormalities, but had mild L ventricular wall thickening. Will monitor in the future.K59.00 Constipation, unspecifiedComments:Constipation appears better with her taking a stool softener BID and Miralax daily. Will continue current treatment and have her call if this is not improving. Saw GI. May need a colonoscopy in the future. She plans on calling GI to schedule an appt in the next few months.K21.9 Gastro-esophageal reflux disease without esophagitisComments:: Pt has GERD that causes CP at times. Has seen Dr. Gary and Dr. Cruz for this. She is now on Pantoprazole 40 mg po daily for this. Will continue and see if this helps with her symptoms. Last EGD was normal. She may get a small bowel series and will consider taking domperidone for her possible gastroparesis. She wonders if she needs a HIDA scan. Will consider in the future.F41.1 Generalized anxiety disorderComments:I had a long discussion with her today about her overall anxiety. I think this is getting out of control and she is upset that testing for things such as her heart are normal and that something is being missed. She has done testing that has been negative. I told her that she appears to be having more psychosomatic symptoms and the main thing that can help her is to control her anxiety. She is currently taking Clonazepam 0.5 mg 1/2 a pill po in the AM- may be causing sedation, so will have to monitor this. Will use Alprazolam just for breakthrough symptoms- has been able to avoid this recently. Encouraged the patient to see a counselor. Will continue on Sertraline 100 mg. Appears to be doing better on this. I encouraged her to call [facility] to see them as she is interested in a support group they offer, plus she could do more counseling and see a prescriber there Functional Status Description No Information Available Mental Status Description No Information Available Referrals Refer to Reason for Referral Status Appt Date Garry Hunt MD Elevated cortisol level- rule out [facility] 2018 referal being reviewed by referall coordinator - will call 06.07 [address] [place] [address] [phone] [facility] Anxiety/depression- would like to [facility] Services work with a support group referral faxed. I let the patient know that she needs to go do the intake and they will place her in the support group that fits best for her 06/08 Left message for Mr. Mackey at [facility] asking if the patient ever contacted them to schedule appt 06/16 [address] [facility] [address] [phone]
--- OUTSIDE RECORDS SUMMARY | 2019-10-20 08:56 | XMS REPORT | Continuity of Care Document ---
:1975 External Reference #:[id number] Author Name Colt Haque DO Address [address] [place] [address] Care Team Providers Name Role Phone [place] [facility] - Obstetrics & Care Team Information Traffic Coordinator [phone] Gynecology [facility] Care Team Information Traffic Coordinator [phone] [facility] [place] - Gastroenterology Care Team Information Traffic Coordinator [phone] [facility] Care Team Information Traffic Coordinator Unavailable [facility] Allergy & Care Team Information Traffic Coordinator [phone] Immunology Problems Active Problems Provider Date Helicobacter [...] as needed DO Capsules for muscle spasm [id number]-1-[id number] Ethyl 2 by mouth once a 60caps Colt Haque, 07/09/2019 Esters day DO 1gm Capsules Sertraline HCL 1 tab by mouth 45tabs Colt Haque, 07/02/2019 100mg every day DO Tablets Mirtazapine [...] by mouth as Unknown 25mg needed Capsules Amonate 3-6-9 Complex Includes Co-q10 Unknown and Red Yeast Capsules Rice Takes one tab bid Saline Nasal Bryan 1-2sprays as Unknown 0.65% needed congestion Solution History Medications Zoloft 1 po daily 30tabs Colt Haque DO 09/10/2019 - 100mg Tablets 09/09/2019 Ketoconazole apply to hair 120ml Colt Haque DO 07/30/2019 - 2% Shampoo twice a week for 08/29/2019 up to 4 weeks Fluconazole 1 by mouth x 1, 2tabs Colt Haque, DO 07/13/2019 - 150mg Tablets then repeat again [...] Tablets Duloxetine HCL Take 1 Capsule By BellocapColt Boogie, 03/26/2019 - 20mg Caps Mouth Every Day 05/25/2019 DR Ayoub Immunizations CPT Code Status Date Vaccine Lot # [id number] Given 07/22/2018 Influenza Vac, Quadrivalent, Split, 0.5mL Dosage, Im Use Q2039 Given 07/05/2016 Flu Vaccine NOS 11039 Given 11/25/2014 Tdap (Adacel) Ages 7 And Above Only 00929 Given 11/25/2014 Tdap (Adacel) Ages 7 And Above Only [id number] 78220 Given 05/19/2012 Afluria Or Fluvirin Flu Vac Intramuscular 45143 Given 07/08/2011 Afluria Or Fluvirin Flu Vac Intramuscular 08357 Given 07/01/2010 Afluria Or Fluvirin Flu Vac Intramuscular Vital Signs Date Vital Result Comment 09/10/2019 4:42pm Heart Rate 88 /min BP Systolic 126 mmHg BP Diastolic 76 mmHg Respiratory Rate 18 /min O2 % BldC Oximetry 98 % Ra 08/20/2019 4:42pm Weight 191.00 lb Heart Rate 72 /min BP Systolic 120 mmHg BP Diastolic 70 mmHg Results Test Acquired Date Facility Test Result H/L Range Note GC/Chlamydia 07/15/2019 [facility] GCCHL Disclaimer (SEE NOTE) 1, 2 Amplified Rna Chlamydia trachomatis Geraldine Negative Negative Neisseria gonorrhoeae (GC) Geraldine Negative Negative Laboratory test 07/15/2019 [facility] Gardnerella/Yeast: SEE RESULT 3 finding Vaginal Dna BELOW CBC with Auto 05/24/2019 [facility] White Blood Count 7.0 K/uL [...] 40.4-72.8 Lymph % 36.0 % Normal 20.0-42.0 [place] % 6.4 % Normal 4.3-13.2 Eo% 1.6 % Normal 0.0-6.6 Bas% 0.6 % Normal 0.0-1.1 Immature Grans 0.1 % Normal 0.0-5.0 NRBC % 0.0 /100WBC < 10/ 100 WBC Neut# 3.87 K/uL Normal 1.8-7.0 Lymph # 2.52 K/uL Normal 1.0-4.0 [place] # 0.45 K/uL Normal 0.3-0.9 Eos # 0.11 K/uL Normal 0.0-0.5 Baso # 0.04 K/uL Normal 0.0-0.1 Immature Grans Absolute 0.01 K/uL NRBC # 0.00 K/uL Comprehensive 05/24/2019 [facility] Glucose 94 mg/dL Normal 74-106 Metabolic [...] 67 U/L Normal 45-117 Laboratory test 05/24/2019 [facility] Magnesium 2.1 mg/ dL Normal 1.8-2.4 finding (315)- - LDL Cholesterol 05/24/2019 [facility] Cholesterol 195 mg/ dL <200 7 Profile (315)- - Triglycerides 345 mg/dL High <150 8 HDL Cholesterol 52 mg/dL >40 9 LDL-Cholesterol 74 mg/dL < 100 10 Laboratory 05/24/2019 [facility] Thyroid 3.89 uIU/mL Normal 0.30-4.20 test finding (315)- - Stim Hormone Laboratory 05/24/2019 [facility] Vitamin 29.9 ng/mL Low 30.0-100.0 11 test finding (315)- - D,25-Hydrox y Laboratory 05/24/2019 [facility] Cortisol,Ra 46.2 g/dL . 12 test finding (315)- - ndom Laboratory 04/12/2019 [facility] HPV Laboratory 13 test finding [phone] Allia <SEE NOTE> Laboratory 04/12/2019 [facility] Pap Smear SEE NOTE 14 test finding Thin Prep 1 [id number] 2 As with all diagnostic procedures, the laboratory results obtained should be used in conjunction with other clinical information available to the physician, including confirmation by another method, as applicable. 3 SEE RESULT BELOW Name: THU VELASQUEZ : [address]: Colt Haque DO Acct: [id number] Unit: [id number] AGE: 43 Location: [facility] Re07/15/19 SEX: F Status: REG REF SPEC: [id number] DEANNA: 07/15/[address] [facility] [address]: Colt Haque DO REQ: [id number] RECD: 07/15/19 STATUS:COMP _ SOURCE: VAGINAL [facility]: ORDERED: Pedrito,Yeast DNA, Trich DNA COMMENTS: [id number] QUERIES: Would you like to order Trichomonas [...] CONTINUED ON NEXT PAGE DEPARTMENT OF PATHOLOGY, [address] [place] [address] Efrain Chen M.D. Director GET # [id number] Patient: THU VELASQUEZ [id number] (Continued) Specimen: [id number] Collected: 07/15/19 Received: 07/15/19 (Continued) Procedure Result Reported Site Trichomonas: Vaginal DNA Probe Final (continued) 07/16/19 6876 The presence or absence of T. vaginalis cannot be used as a test for therapeutic success or failure. * [facility] - Main Lab . END OF REPORT DEPARTMENT OF PATHOLOGY, [address] [place] [address] Efrain Chen M.D. Director [facility] # [id number] 4 I95.9 5 Note: Persistent reduction for [...] D deficiency has been defined by the [place] of [employer] and an Endocrine Society practice guideline as a level of serum 25-OH vitamin D less than 20 ng/mL (1,2). The Endocrine Society went on to further define vitamin D insufficiency as a level between 21 and 29 ng/mL (2). 1. IOM ([place] of [employer]). 2010. Dietary reference intakes for calcium and D. [place]: The National Academies Press. 2. Jordin MORE, Philip PERDUE, Verna SMITH, et al. Evaluation, treatment, and prevention of vitamin D deficiency: an Endocrine Society clinical practice guideline. JCEM. 2010; 96(7):1911-30. Performed at: RN - [facility] [address] [id number] Jockey Agent: Jackie Krishna MD, Phone: [phone] Cortisol AM 6.2 - 19.4 Cortisol PM 2.3 - 11.9 Performed at: RN - [facility] [address] [id number] Jockey Agent: Jackie Krishna MD, Phone: [phone] [address] [place] [address] Amplified Molecular High Risk HPV Test Patient Name:THU VELASQUEZ Patient :1975 Ordering Physician:LOW [place] Accession Number [id number] Specimen(s) Received A: High Risk HPV Thin Prep Cervical Pap Smear - One Vial Other Case Numbers: [id number] Diagnosis RISK GROUPS RESULTS High Risk NEGATIVE Tested for HPV Types (16, 18, 31, 33, 35, 39, 45, 51, 52, 56, 58, 59, 66, 68) Reported: 04/15/2019 09:20 Electronically Signed Out By Mag Wheeler blas Derek Smith 14 @[facility]. [facility] [employer] [place] [address] CYTOLOGY REPORT Source of Specimen(s): Thin Prep [...] DANDY ICD9 Code: Z01.419 CPT code: A: ID548A QC Reviewed: Y Unless otherwise specified, testing performed by [address] [address] Procedures Date Code Description Status 09/10/2019 78865 Omt 3-4 Body Regions Completed 08/20/2019 18746 Omt 3-4 Body Regions Completed 07/30/2019 63228 Omt 3-4 Body Regions Completed 07/09/2019 55054 Omt 3-4 Body Regions Completed 06/18/2019 45367 Omt 3-4 Body Regions Completed 05/21/2019 17141 Omt 3-4 Body Regions Completed 04/29/2019 48963 Omt 3-4 Body Regions Completed 03/26/2019 29173 Omt 3-4 Body Regions Completed 01/06/2019 [id number] Mammogram Completed 02/12/2017 [id number] Colonoscopy Completed Medical Devices Description No Information Available Encounters Type Date Location Provider Dx Diagnosis Office Visit 09/10/2019 Colt Wallace DO F33.1 Major depressive 4:15p disorder, recurrent, moderate F41.0 Panic disorder [episodic paroxysmal anxiety] R00.0 Tachycardia, unspecified I95.9 Hypotension, unspecified R06.02 Shortness of breath J32.9 Chronic sinusitis, unspecified G47.9 Sleep disorder, unspecified L21.9 Seborrheic dermatitis, unspecified M54.2 Cervicalgia E78.2 Mixed hyperlipidemia I34.1 Nonrheumatic mitral (valve) prolapse M99.01 Segmental and somatic dysfunction of cervical region K59.00 Constipation, unspecified K21.9 Gastro-esophageal reflux disease without esophagitis F41.1 Generalized anxiety disorder M26.601 RIGHT temporomandibular joint disorder, unspecified Office Visit 07/30/2019 4:15p [facility] Colt Haque DO F41.1 Generalized anxiety disorder [...] Seborrheic dermatitis, unspecified Office Visit 07/09/2019 4:15p [facility] Colt Haque DO F41.1 Generalized anxiety disorder [...] (BMI) 28.0-28.9, adult Office Visit 06/18/2019 4:15p [facility] Colt Haque DO F41.1 Generalized anxiety disorder [...] (BMI) 28.0-28.9, adult Office Visit 06/04/2019 4:15p [facility] Colt Haque DO F41.1 Generalized anxiety disorder [...] (BMI) 28.0-28.9, adult Office Visit 05/21/2019 4:15p [facility] Colt Haque DO F41.1 Generalized anxiety disorder [...] (BMI) 28.0-28.9, adult Office Visit 04/12/2019 8:30a [facility] Low Gómez PA Z01.419 Encntr for sock examiner exam (general) (routine) w/o abn findings F33.1 Major depressive disorder, recurrent, moderate Office Visit 03/26/2019 4:15p [facility] Haque, Colt, DO F41.1 Generalized anxiety disorder F41.0 Panic [...] 28.0-28.9, adult Assessments Date Code Description Provider 09/10/2019 F33.1 Major depressive disorder, recurrent, moderate Haque, Colt, DO 09/10/2019 F41.0 Panic disorder [episodic paroxysmal anxiety] Haque, Colt , DO 09/10/2019 R00.0 Tachycardia, unspecified Haque, Colt, DO 09/10/2019 I95.9 Hypotension, unspecified Haque, Colt, DO 09/10/2019 R06.02 Shortness of breath Haque, Colt, DO 09/10/2019 J32.9 Chronic sinusitis, unspecified Haque, Colt, DO 09/10/2019 G47.9 Sleep disorder, unspecified Haque, Colt, DO 09/10/2019 L21.9 Seborrheic dermatitis, unspecified Haque, Colt, DO 09/10/2019 M54.2 Cervicalgia Haque, Colt, DO 09/10/2019 E78.2 Mixed hyperlipidemia Haque, Colt, DO 09/10/2019 I34.1 Nonrheumatic mitral (valve) prolapse Haque, Colt, DO 09/10/2019 M99.01 Segmental and somatic dysfunction of cervical HaqueColt blackburn, DO region 09/10/2019 K59.00 Constipation, unspecified Haque, Colt, DO 09/10/2019 K21.9 Gastro-esophageal reflux disease without Haque, Colt, DO esophagitis 09/10/2019 F41.1 Generalized anxiety disorder HaqueSaurabh blackburnew, DO 09/10/2019 M26.601 RIGHT temporomandibular joint disorder, Haque, Colt, DO unspecified 08/20/2019 F41.1 Generalized anxiety disorder Haque, Colt, DO 08/20/2019 F41.0 Panic disorder [episodic paroxysmal anxiety] Haque, Colt , DO 08/20/2019 F33.1 Major depressive disorder, recurrent, moderate Haque, Colt, DO 08/20/2019 R00.0 Tachycardia, unspecified Haque, Colt, DO 08/20/2019 I95.9 Hypotension, unspecified Haque, Colt, DO 08/20/2019 E78.2 Mixed hyperlipidemia Haque, Colt, DO 08/20/2019 R06.02 Shortness of breath Haque, Colt, DO 08/20/2019 K21.9 Gastro-esophageal reflux disease without Haque, Colt, DO esophagitis 08/20/2019 K59.00 Constipation, unspecified Haque, Colt, DO 08/20/2019 M99.01 Segmental and somatic dysfunction of cervical Haque, Colt, DO region 08/20/2019 I34.1 Nonrheumatic mitral (valve) prolapse Haque, Colt, DO 08/20/2019 M54.2 Cervicalgia Haque, Colt, DO 08/20/2019 L21.9 Seborrheic dermatitis, unspecified Haque, Colt, DO 08/20/2019 G47.9 Sleep disorder, unspecified Haque, Colt, DO 08/20/2019 J32.9 Chronic sinusitis, unspecified Haque, Colt, DO 07/30/2019 F41.1 Generalized anxiety disorder Haque, Colt, DO 07/30/2019 F41.0 Panic disorder [episodic paroxysmal anxiety] Haque, Colt , DO 07/30/2019 F33.1 Major depressive disorder, recurrent, moderate Haque, Colt, DO 07/30/2019 R00.0 Tachycardia, unspecified Haque, Colt, DO 07/30/2019 I95.9 Hypotension, unspecified Haque, Colt, DO 07/30/2019 E78.2 Mixed hyperlipidemia Haque, Colt, DO 07/30/2019 R06.02 Shortness of breath Haque, Colt, DO 07/30/2019 K21.9 Gastro-esophageal reflux disease without Haque, Colt, DO esophagitis 07/30/2019 K59.00 Constipation, unspecified Colt Haque, DO 07/30/2019 M99.01 Segmental and somatic dysfunction of cervical Colt Haque, region 07/30/2019 M99.00 Segmental and somatic dysfunction of head Colt Haque, DO region 07/30/2019 M99.07 Segmental and somatic dysfunction of upper Colt Haque , extremity 07/30/2019 I34.1 Nonrheumatic mitral (valve) prolapse Colt Haque, DO 07/30/2019 M54.2 Cervicalgia Colt Haque, DO 07/30/2019 L21.9 Seborrheic dermatitis, unspecified Colt Haque, DO 07/09/2019 F41.1 Generalized anxiety disorder Colt Haque, DO 07/09/2019 F41.0 Panic disorder [episodic paroxysmal anxiety] Colt Haque , DO 07/09/2019 F33.1 Major depressive disorder, recurrent, moderate Colt Haque, DO 07/09/2019 R00.0 Tachycardia, unspecified Colt Haque, DO 07/09/2019 I95.9 Hypotension, unspecified HaqueColt blackburn, DO 07/09/2019 E78.2 Mixed hyperlipidemia Colt Haque, DO 07/09/2019 R06.02 Shortness of breath Colt Haque, DO 07/09/2019 K21.9 Gastro-esophageal reflux disease without Colt Haque, esophagitis 07/09/2019 K59.00 Constipation, unspecified Colt Haque, DO 07/09/2019 M99.01 Segmental and somatic dysfunction of cervical Colt Haque, region 07/09/2019 M99.00 Segmental and somatic dysfunction of head Colt Haque, DO region 07/09/2019 M99.07 Segmental and somatic dysfunction of upper Colt Haque , extremity 07/09/2019 I34.1 Nonrheumatic mitral (valve) prolapse Colt Haque, DO 07/09/2019 M54.2 Cervicalgia Colt Haque, DO 07/09/2019 Z68.28 Body mass index (BMI) 28.0-28.9, adult Colt Haque, DO 06/18/2019 F41.1 Generalized anxiety disorder HaqueColt, DO 06/18/2019 F41.0 Panic disorder [episodic paroxysmal anxiety] Haque, Colt , DO 06/18/2019 F33.1 Major depressive disorder, [...] prolapse Haque, Colt, DO 06/18/2019 M54.2 Cervicalgia Haque, Colt, DO 06/18/2019 M72.2 Plantar fascial fibromatosis Haque, Colt, DO 06/18/2019 H81.10 Benign paroxysmal vertigo, unspecified ear Haque, Colt , DO 06/18/2019 G47.00 Insomnia, unspecified Haque, Colt, DO 06/18/2019 M99.01 Segmental and somatic dysfunction of cervical HaqueColt blackburn, DO region 06/18/2019 J01.90 Acute sinusitis, unspecified Haque, Colt, DO 06/18/2019 Z68.28 Body mass index (BMI) 28.0-28.9, adult HaqueColt, DO 06/04/2019 F41.1 Generalized anxiety disorder HaqueColt, DO 06/04/2019 F41.0 Panic disorder [episodic paroxysmal anxiety] Haque, Colt , DO 06/04/2019 F33.1 Major depressive disorder, recurrent, moderate Haque, Colt, DO 06/04/2019 R00.0 Tachycardia, unspecified Haque, Colt, DO 06/04/2019 I95.9 Hypotension, unspecified Haque, Colt, DO 06/04/2019 E78.2 Mixed hyperlipidemia Haque, Colt, DO 06/04/2019 R06.02 Shortness of breath Haque, Colt, DO 06/04/2019 K21.9 Gastro-esophageal reflux disease without HaqueColt blackburn DO esophagitis 06/04/2019 K59.00 Constipation, unspecified Colt Haque, DO 06/04/2019 I34.1 Nonrheumatic mitral (valve) prolapse Colt Haque, DO 06/04/2019 M54.2 Cervicalgia Colt Haque, DO 06/04/2019 M72.2 Plantar fascial fibromatosis Colt Haque, DO 06/04/2019 H81.10 Benign paroxysmal vertigo, unspecified ear HaqueColt blackburn , DO 06/04/2019 G47.00 Insomnia, unspecified HaqueColt blackburn, DO 06/04/2019 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 Colt Haque, DO 06/04/2019 M99.01 Segmental and somatic dysfunction of cervical Colt Haque, region 06/04/2019 Z68.28 Body mass index (BMI) 28.0-28.9, adult Colt Haque, DO 05/21/2019 F41.1 Generalized anxiety disorder Colt Haque, DO 05/21/2019 F41.0 Panic disorder [episodic paroxysmal anxiety] Colt Haque , DO 05/21/2019 F33.1 Major depressive disorder, recurrent, moderate Colt Haque, DO 05/21/2019 R00.0 Tachycardia, unspecified Colt Haque, DO 05/21/2019 I95.9 Hypotension, unspecified Colt Haque, DO 05/21/2019 E78.2 Mixed hyperlipidemia Colt Haque, DO 05/21/2019 R06.02 Shortness of breath Colt Haque, DO 05/21/2019 K21.9 Gastro-esophageal reflux disease without HaqueColt blackburn DO esophagitis 05/21/2019 K59.00 Constipation, unspecified HaqueColt blackburn, DO 05/21/2019 M99.01 Segmental and somatic dysfunction of cervical Colt Haque, region 05/21/2019 I34.1 Nonrheumatic mitral (valve) prolapse Colt Haque, DO 05/21/2019 M54.2 Cervicalgia Colt Haque, DO 05/21/2019 M72.2 Plantar fascial fibromatosis Colt Haque, DO 05/21/2019 H81.10 Benign paroxysmal vertigo, unspecified ear HaqueColt blackburn , DO 05/21/2019 Z68.28 Body mass index (BMI) 28.0-28.9, adult Colt Haque, DO 04/29/2019 F41.1 Generalized anxiety disorder Colt Haque, DO 04/29/2019 F41.0 Panic disorder [episodic paroxysmal anxiety] Colt Haque , DO 04/29/2019 F33.1 Major depressive disorder, recurrent, moderate HaqueColt blackburn, DO 04/29/2019 R00.0 Tachycardia, unspecified Colt Haque, DO 04/29/2019 I95.9 Hypotension, unspecified HaqueColt blackburn, DO 04/29/2019 E78.2 Mixed hyperlipidemia Colt Haque, DO 04/29/2019 R06.02 Shortness of breath Colt Haque, DO 04/29/2019 K21.9 Gastro-esophageal reflux disease without HaqueColt blackburn, esophagitis 04/29/2019 K59.00 Constipation, unspecified Colt Haque, DO 04/29/2019 M99.01 Segmental and somatic dysfunction of cervical HaqueColt blackburn DO region 04/29/2019 M99.07 Segmental and somatic dysfunction of upper HaqueColt blackburn DO extremity 04/29/2019 M99.00 Segmental and somatic dysfunction of head Colt Haque DO region 04/29/2019 I34.1 Nonrheumatic mitral (valve) prolapse Colt Haque, DO 04/29/2019 M54.2 Cervicalgia Colt Haque, DO 04/29/2019 H81.10 Benign paroxysmal vertigo, unspecified ear HaqueColt blackburn , DO 04/29/2019 M72.2 Plantar fascial fibromatosis Colt Haque, DO 04/29/2019 Z68.28 Body mass index (BMI) 28.0-28.9, adult Colt Haque, 04/12/2019 Z01.419 Encounter for gynecological examination Low Gómez PA (general) (routine) without abnormal findings 04/12/2019 F33.1 Major depressive disorder, recurrent, moderate Low Gómez PA 03/26/2019 F41.1 Generalized anxiety disorder Colt Haque DO 03/26/2019 F41.0 Panic disorder [episodic paroxysmal anxiety] Colt Haque , DO 03/26/2019 F33.1 Major depressive disorder, recurrent, moderate HaqueColt blackburn, 03/26/2019 R00.0 Tachycardia, unspecified Haque, Colt, DO 03/26/2019 I95.9 Hypotension, unspecified Colt Haque DO 03/26/2019 E78.2 Mixed hyperlipidemia Colt Haque, DO 03/26/2019 R06.02 Shortness of breath Colt Haque, 03/26/2019 K21.9 Gastro-esophageal reflux disease without Colt Haque DO esophagitis 03/26/2019 K59.00 Constipation, unspecified HaqueColt blackburn, DO 03/26/2019 M99.01 Segmental and somatic dysfunction of cervical Colt Haque DO region 03/26/2019 I34.1 Nonrheumatic mitral (valve) prolapse Colt Haque DO 03/26/2019 M54.2 Cervicalgia Colt Haque DO 03/26/2019 H81.10 Benign paroxysmal vertigo, unspecified ear Colt Haque , DO 03/26/2019 Z68.28 Body mass index (BMI) 28.0-28.9, adult Colt Haque DO Plan of Treatment Future Appointment(s):01/14/2020 4:15 pm - Colt Haque DO at [facility]12/24/2019 4:15 pm - Colt Haque DO at [facility]12/10/2019 4:15 pm - Colt Haque DO at [facility]11/12/2019 4:15 pm - Colt Haque DO at [facility]10/29/2019 4:15 pm - Colt Haque DO at [facility]09/24/2019 4:15 pm - Colt Haque DO at [facility]09/10/2019 - Colt Haque DOF33.1 Major depressive disorder, recurrent, moderateComments: Would like her to take Clonazepam 0.5 mg 1/2 a pill po in the AM. Will see how she does at her nextappt. I told her that she can use alprazolam 0.5 mg 1/2 a pill up to TID prn. Encouraged the patient to see a counselor. Will continue Sertraline 100 mg as she appears to be doing a little better on this.Follow up: Follow up as scheduled.F41.0 Panic disorder [episodic paroxysmal anxiety] Comments:Anxiety appears to be stable. I would like [...] she is doing a little better on this.R00.0 Tachycardia, unspecifiedComments:: Pt appears to have sinus tachycardia. I told her that this is most likely due to her anxiety. This was seen on an event recorder. I would like her to try to control her anxiety first to see if this helps. She was interested in trying something like propranolol, which may help, but I am concerned this would lower her BP. Will monitor BP [...] at the present time. Will continue to monitor.G47.9 Sleep disorder, unspecifiedComments: Improved at the present time. Will continue to monitor.L21.9 Seborrheic dermatitis, ivthrmqtqxbA08.2 CervicalgiaComments:Pt has cervical spine pain. She had a normal c-spine x-ray in the past. MRI showed that her c-spine and t- spine were normal except for muscle spasm. X-rays did not show anything more significant. Haydee all of this pain is due to [...] havingsome weakness with this. Will also use Amonate-3's for this. She will continue as long as she can tolerate this and will likely check labs soon.I34.1 Nonrheumatic mitral (valve) prolapseComments:Pt has a history of MVP. Echo in 2018 showed no significant valvular abnormalities, but had mild L ventricular wall thickening. Will monitor in the future.M99.01 Segmental and somatic dysfunction of cervical regionComments:3 areas- head, cervical, and upper extremities- treated with OMT as noted zphmgU22.00 Constipation, unspecifiedComments:Constipation appears better with her taking a stool softener BID and Miralax daily. Will continue current treatment and have her call if this is not improving. Saw GI. May need a colonoscopy in the future. She plans on calling GI to schedule an appt in the next few months.K21.9 Gastro- esophageal reflux disease without esophagitisComments:: Pt has GERD [...] do more counseling and see a prescriber urfwoN04.601 RIGHT temporomandibular joint disorder, unspecifiedAllNew Medication:Zoloft 100 mg - 1 po daily Functional Status Description No Information Available Mental Status Description No Information Available Referrals Refer to Reason for Referral Status Appt Date Garry Hunt MD Elevated cortisol level- rule out [facility] 2018 referal being reviewed by referall coordinator - will call 06.07 [address] [place] [address] [phone] Family Counseling Anxiety/depression- would like to Patient Declined Services work with a support group referral faxed. I let the patient know that she needs to go do the intake and they will place her in the support group that fits best for her 06/08 Left message for Mr. Mackey at [facility] asking if the patient ever contacted them to schedule appt 06/16 [address] [facility] [address] [phone]
--- OUTSIDE RECORDS SUMMARY | 2019-10-20 08:56 | XMS REPORT | Continuity of Care Document ---
:1975 External Reference #:[id number] Author Name Colt Haque DO Address [address] [place] [address] Care Team Providers Name Role Phone [place] [facility] [facility] - Obstetrics & Care Team Information Rolling Up Machine Operator Gynecology [facility] Care Team Information Rolling Up Machine Operator [phone] Leandra [facility]ston - Gastroenterology Care Team Information Rolling Up Machine Operator [phone] [facility] Care Team Information Rolling Up Machine Operator Unavailable [facility] Allergy & Care Team Information Rolling Up Machine Operator Immunology Problems Active Problems Provider Date [...] Medications SIG Qnty Indications Ordering Date Provider Ketoconazole apply to hair 120ml Colt Haque, 07/30/2019 2% Shampoo twice a week for DO up to 4 weeks Akbfg-1-Upnm Ethyl 2 by mouth once a 60caps Colt Haque, 07/09/2019 Esters day DO 1gm Capsules Sertraline HCL 1 1/2 by mouth 45tabs Colt Haque, 07/02/2019 100mg [...] 06/26/2017 40mg mouth every day DO Tablets Vitamin D3 Complete takes 5000 iu qd [...] by mouth as Unknown 25mg needed Capsules Coggon 3-6-9 Complex Includes Co-q10 Unknown and Red Yeast Capsules Rice Takes one tab bid Saline Nasal [place] 1-2sprays as Unknown 0.65% needed congestion Solution History Medications Fluconazole 1 by mouth x 1, 2tabs Colt Haque, DO 07/13/2019 - 150mg then repeat again 07/18/2019 Tablets 5 days later if needed. Doxycycline 1 [...] Tablets Duloxetine HCL Take 1 Capsule By 30caps Colt Haque, DO 03/26/2019 - 20mg Mouth Every Day 05/25/[address] Ayoub Immunizations CPT Code Status Date Vaccine Lot # [id number] Given 07/22/2018 Influenza Vac, Quadrivalent, Split, 0.5mL Dosage, Im Use [id number] Given 07/05/2016 Flu Vaccine NOS 21537 Given 11/25/2014 Tdap (Adacel) Ages 7 And Above Only [id number] Given 11/25/2014 Tdap (Adacel) Ages 7 And Above Only [id number] Given 05/19/2012 Afluria Or Fluvirin Flu Vac Intramuscular 64309 Given 07/08/2011 Afluria Or Fluvirin Flu Vac Intramuscular 96740 Given 07/01/2010 Afluria Or Fluvirin Flu Vac Intramuscular Vital Signs Date Vital Result Comment 08/20/2019 4:42pm Weight 191.00 lb Heart Rate 72 /min BP Systolic 120 mmHg BP Diastolic 70 mmHg 07/30/2019 4:47pm Heart Rate 68 /min BP Systolic 118 mmHg BP Diastolic 64 mmHg Respiratory Rate 18 /min Results Test Acquired Date Facility Test Result H/L Range Note GC/Chlamydia 07/15/2019 [facility] Disclaimer (SEE NOTE) 1, 2 Amplified Rna Chlamydia trachomatis [facility] Negative Negative Neisseria gonorrhoeae (GC) [facility] Negative Negative Laboratory test 07/15/2019 [facility]/Yeast: SEE RESULT 3 finding Vaginal Dna BELOW CBC with Auto 05/24/2019 [facility] White Blood Count 7.0 K/uL [...] 40.4-72.8 Lymph % 36.0 % Normal 20.0-42.0 Mitchell % 6.4 % Normal 4.3-13.2 Eo% 1.6 % Normal 0.0-6.6 Bas% 0.6 % Normal 0.0-1.1 Immature Grans 0.1 % Normal 0.0-5.0 NRBC % 0.0 /100WBC < 10/ 100 WBC Neut# 3.87 K/uL Normal 1.8-7.0 Lymph # 2.52 K/uL Normal 1.0-4.0 Mitchell # 0.45 K/uL Normal 0.3-0.9 Eos # 0.11 K/uL Normal 0.0-0.5 Baso # 0.04 K/uL Normal 0.0-0.1 Immature Grans Absolute 0.01 K/uL NRBC # 0.00 K/uL Comprehensive 05/24/2019 [facility] Glucose 94 mg/dL Normal 74-106 Metabolic [...] 67 U/L Normal 45-117 Laboratory test 05/24/2019 [facility] Magnesium 2.1 mg/ dL Normal 1.8-2.4 finding (315)- - LDL Cholesterol 05/24/2019 [facility] Cholesterol 195 mg/ dL <200 7 Profile (315)- - Triglycerides 345 mg/dL High <150 8 HDL Cholesterol 52 mg/dL >40 9 LDL-Cholesterol 74 mg/dL < 100 10 Laboratory 05/24/2019 [facility] Thyroid 3.89 uIU/mL Normal 0.30-4.20 test finding (315)- - Stim Hormone Laboratory 05/24/2019 [facility] Vitamin 29.9 ng/mL Low 30.0-100.0 11 test finding (315)- - D,25-Hydrox y Laboratory 05/24/2019 [facility] Cortisol,Ra 46.2 g/dL . 12 test finding (315)- - ndom Laboratory 04/12/2019 [facility] 13 test finding [phone] Allia <SEE NOTE> Laboratory 04/12/2019 [facility] Pap Smear SEE NOTE 14 test finding Thin Prep 1 [id number] 2 As with all diagnostic procedures, the laboratory results obtained should be used in conjunction with other clinical information available to the physician, including confirmation by another method, as applicable. 3 SEE RESULT BELOW Name: THU VELASQUEZ : [address]: Colt Haque DO Acct: [id number] Unit: [id number] AGE: 43 Location: [facility] Re07/15/19 SEX: F Status: REG REF SPEC: [id number] DEANNA: 07/15/[address]: Colt Haque DO REQ: [id number] RECD: 07/15/19 STATUS:COMP _ SOURCE: VAGINAL SPDESC: ORDERED: Pedrito,Yeast DNA, Trich DNA COMMENTS: [id number] QUERIES: Would you like to order Trichomonas [...] CONTINUED ON NEXT PAGE DEPARTMENT OF PATHOLOGY, [address] [place] [address] Efrain Chen M.D. Director [facility] # [id number] Patient: THU VELASQUEZ [id number] (Continued) Specimen: [id number] Collected: 07/15/19 Received: 07/15/19 (Continued) Procedure Result Reported Site Trichomonas: Vaginal DNA Probe Final (continued) 07/16/191348 The presence or absence of T. vaginalis cannot be used as a test for therapeutic success or failure. * ML - Main Lab . END OF REPORT DEPARTMENT OF PATHOLOGY, [address] [place] [address] Efrain Chen M.D. Director [facility] # [id number] 4 I95.9 5 Note: Persistent reduction for [...] D deficiency has been defined by the Fletcher of Medicine and an Endocrine Society practice guideline as a level of serum 25-OH vitamin D less than 20 ng/mL (1,2). The Endocrine Society went on to further define vitamin D insufficiency as a level between 21 and 29 ng/mL (2). 1. IOM (Fletcher of Medicine). 2010. Dietary reference intakes for calcium and D. [place]: The National Academies Press. 2. Jordin MF, Philip PERDUE, Verna SMITH, et al. Evaluation, treatment, and prevention of vitamin D deficiency: an Endocrine Society clinical practice guideline. JCEM. 2010; 96(7):1911-30. Performed at: RN - [facility] [address] [id number] Emulsion Operator: Jackie Krishna MD, Phone: [phone] Cortisol AM 6.2 - 19.4 Cortisol PM 2.3 - 11.9 Performed at: RN - [facility] [address] [id number] Emulsion Operator: Jackie Krishna MD, Phone: [phone] [facility] [address] [address] Amplified Molecular High Risk HPV Test Patient Name:THU VELASQUEZ Patient :1975 Ordering Physician:LOW [place] Accession Number [id number] Specimen(s) Received A: High Risk HPV Thin Prep Cervical Pap Smear - One Vial Other Case Numbers: [id number] Diagnosis RISK GROUPS RESULTS High Risk NEGATIVE Tested for HPV Types (16, 18, 31, 33, 35, 39, 45, 51, 52, 56, 58, 59, 66, 68) Reported: 04/15/2019 09:20 Electronically Signed Out By Mag Wheeler blasbritt Smith 14 LABORATORY [facility], [facility]. [address] [place] [id number] CYTOLOGY REPORT Source of Specimen(s): Thin Prep [...] Signed Out By Vonnie Madden CT(ASCP) dandy Estevesia Kelley CT(ASCP) DANDY ICD9 Code: Z01.419 CPT code: A: FW626B QC Reviewed: Y Unless otherwise specified, testing performed by [facility] [employer] [address] [place] [address] Procedures Date Code Description Status 08/20/2019 88180 Omt 3-4 Body Regions Completed 07/30/2019 46911 Omt 3-4 Body Regions Completed 07/09/2019 51313 Omt 3-4 Body Regions Completed 06/18/2019 53665 Omt 3-4 Body Regions Completed 05/21/2019 33111 Omt 3-4 Body Regions Completed 04/29/2019 43908 Omt 3-4 Body Regions Completed 03/26/2019 79683 Omt 3-4 Body Regions Completed 01/06/2019 [id number] Mammogram Completed 02/12/2017 [id number] Colonoscopy Completed Medical Devices Description No Information Available Encounters Type Date Location Provider Dx Diagnosis Office Visit 08/20/2019 [facility] Colt Haque DO F41.1 Generalized anxiety 4:15p disorder F41.0 Panic disorder [episodic paroxysmal anxiety] F33.1 Major depressive disorder, recurrent, moderate R00.0 Tachycardia, unspecified I95.9 Hypotension, unspecified E78.2 Mixed hyperlipidemia R06.02 Shortness of breath K21.9 Gastro-esophageal reflux disease without esophagitis K59.00 Constipation, unspecified M99.01 Segmental and somatic dysfunction of cervical region I34.1 Nonrheumatic mitral (valve) prolapse M54.2 Cervicalgia L21.9 Seborrheic dermatitis, unspecified G47.9 Sleep disorder, unspecified J32.9 Chronic sinusitis, unspecified Office Visit 07/09/2019 4:15p [facility] Colt Haque DO F41.1 Generalized anxiety [...] (BMI) 28.0-28.9, adult Office Visit 06/18/2019 4:15p [facility] Colt Haque DO F41.1 Generalized anxiety [...] (BMI) 28.0-28.9, adult Office Visit 06/04/2019 4:15p [facility] Colt Haque DO F41.1 Generalized anxiety [...] (BMI) 28.0-28.9, adult Office Visit 05/21/2019 4:15p [facility] Colt Haque DO F41.1 Generalized anxiety [...] (BMI) 28.0-28.9, adult Office Visit 04/12/2019 8:30a [facility] Low Gómez PA Z01.419 Encntr for fundraising sale representative exam (general) (routine) w/o abn findings F33.1 Major depressive disorder, recurrent, moderate Office Visit 03/26/2019 4:15p [facility] Colt Haque DO F41.1 Generalized anxiety [...] 28.0-28.9, adult Assessments Date Code Description Provider 08/20/2019 F41.1 Generalized anxiety disorder Colt Haque DO 08/20/2019 F41.0 Panic disorder [episodic paroxysmal anxiety] Colt Haque DO 08/20/2019 F33.1 Major depressive disorder, recurrent, moderate Colt Haque DO 08/20/2019 R00.0 Tachycardia, unspecified Colt Haque DO 08/20/2019 I95.9 Hypotension, unspecified Colt Haque DO 08/20/2019 E78.2 Mixed hyperlipidemia Haque, Colt, DO 08/20/2019 R06.02 Shortness of breath Haque, Colt, DO 08/20/2019 K21.9 Gastro-esophageal reflux disease without Haque, Colt, DO esophagitis 08/20/2019 K59.00 Constipation, unspecified Haque, Colt, DO 08/20/2019 M99.01 Segmental and somatic dysfunction of cervical HaqueColt blackburn, DO region 08/20/2019 I34.1 Nonrheumatic mitral (valve) prolapse Haque, Colt, DO 08/20/2019 M54.2 Cervicalgia HaqueColt, DO 08/20/2019 L21.9 Seborrheic dermatitis, unspecified Haque, Colt, DO 08/20/2019 G47.9 Sleep disorder, unspecified Haque Colt, DO 08/20/2019 J32.9 Chronic sinusitis, unspecified Haque, Colt, DO 07/30/2019 F41.1 Generalized anxiety disorder HaqueColt, DO 07/30/2019 F41.0 Panic disorder [episodic paroxysmal anxiety] HaqueColt , DO 07/30/2019 F33.1 Major depressive disorder, recurrent, moderate Haque Colt, DO 07/30/2019 R00.0 Tachycardia, unspecified Haque Colt, DO 07/30/2019 I95.9 Hypotension, unspecified Haque, Colt, DO 07/30/2019 E78.2 Mixed hyperlipidemia HaqueColt blackburn, DO 07/30/2019 R06.02 Shortness of breath Colt Haque, DO 07/30/2019 K21.9 Gastro-esophageal reflux disease without Haque, Colt, DO esophagitis 07/30/2019 K59.00 Constipation, unspecified Haque, Colt, DO 07/30/2019 M99.01 Segmental and somatic dysfunction of cervical HaqueColt, DO region 07/30/2019 M99.00 Segmental and somatic dysfunction of head HaqueColt blackburn, DO region 07/30/2019 M99.07 Segmental and somatic dysfunction of upper Haque Colt , DO extremity 07/30/2019 I34.1 Nonrheumatic mitral (valve) prolapse HaqueColt, DO 07/30/2019 M54.2 Cervicalgia Colt Haque, DO 07/30/2019 L21.9 Seborrheic dermatitis, unspecified Colt Haque, DO 07/09/2019 F41.1 Generalized anxiety disorder Colt Haque, DO 07/09/2019 F41.0 Panic disorder [episodic paroxysmal anxiety] Colt Haque , DO 07/09/2019 F33.1 Major depressive disorder, recurrent, moderate HaqueColt, DO 07/09/2019 R00.0 Tachycardia, unspecified HaqueColt, DO 07/09/2019 I95.9 Hypotension, unspecified Haque, Colt, DO 07/09/2019 E78.2 Mixed hyperlipidemia HaqueColt blackburn, DO 07/09/2019 R06.02 Shortness of breath Colt [...] 06/18/2019 F41.0 Panic disorder [episodic paroxysmal anxiety] Colt Haque , DO 06/18/2019 F33.1 Major depressive disorder, recurrent, moderate HaqueColt, DO 06/18/2019 R00.0 Tachycardia, unspecified HaqueColt, DO 06/18/2019 I95.9 Hypotension, unspecified HaqueColt, DO 06/18/2019 E78.2 Mixed hyperlipidemia HaqueColt blackburn, DO 06/18/2019 R06.02 Shortness of breath Colt Haque, DO 06/18/2019 K21.9 Gastro-esophageal reflux disease without Haque, Colt, DO esophagitis 06/18/2019 K59.00 Constipation, unspecified HaqueColt blackburn, DO 06/18/2019 I34.1 Nonrheumatic mitral (valve) prolapse HaqueColt blackburn, DO 06/18/2019 M54.2 Cervicalgia HaqueColt, DO 06/18/2019 M72.2 Plantar fascial fibromatosis Haque, Colt, DO 06/18/2019 H81.10 Benign paroxysmal vertigo, unspecified ear Haque, Colt , DO 06/18/2019 G47.00 Insomnia, unspecified HaqueColt, DO 06/18/2019 M99.01 Segmental and somatic dysfunction of cervical HaqueColt blackburn, region 06/18/2019 J01.90 Acute sinusitis, unspecified HaqueColt blackburn, DO 06/18/2019 Z68.28 Body mass index (BMI) 28.0-28.9, adult Colt Haque, DO 06/04/2019 F41.1 Generalized anxiety disorder Colt Haque, DO 06/04/2019 F41.0 Panic disorder [episodic paroxysmal anxiety] Colt Haque , DO 06/04/2019 F33.1 Major depressive disorder, recurrent, moderate HaqueColt blackburn, DO 06/04/2019 R00.0 Tachycardia, unspecified HaqueColt blackburn, DO 06/04/2019 I95.9 Hypotension, unspecified HaqueColt blackburn, DO 06/04/2019 E78.2 Mixed hyperlipidemia Colt Haque, DO 06/04/2019 R06.02 Shortness of breath Colt Haque, DO 06/04/2019 K21.9 Gastro-esophageal reflux disease without HaqueColt, esophagitis 06/04/2019 K59.00 Constipation, unspecified HaqueColt, DO 06/04/2019 I34.1 Nonrheumatic mitral (valve) prolapse HaqueColt blackburn, DO 06/04/2019 M54.2 Cervicalgia HaqueColt blackburn, DO 06/04/2019 M72.2 Plantar fascial fibromatosis HaqueColt blackburn, DO 06/04/2019 H81.10 Benign paroxysmal vertigo, unspecified ear HaqueColt blackburn , DO 06/04/2019 G47.00 Insomnia, unspecified HaqueColt blackburn, DO 06/04/2019 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 Colt Haque, DO 06/04/2019 M99.01 Segmental and somatic dysfunction of cervical HaqueColt blackburn, region 06/04/2019 Z68.28 Body mass index (BMI) 28.0-28.9, adult Colt Haque, DO 05/21/2019 F41.1 Generalized anxiety disorder Colt Haque, DO 05/21/2019 F41.0 Panic disorder [episodic paroxysmal anxiety] Colt Haque , DO 05/21/2019 F33.1 Major depressive disorder, recurrent, moderate HaqueColt, DO 05/21/2019 R00.0 Tachycardia, unspecified HaqueColt blackburn, DO 05/21/2019 I95.9 Hypotension, unspecified HaqueColt blackburn, DO 05/21/2019 E78.2 Mixed hyperlipidemia Colt Haque, DO 05/21/2019 R06.02 Shortness of breath Colt Haque, DO 05/21/2019 K21.9 Gastro-esophageal reflux disease without HaqueColt, esophagitis 05/21/2019 K59.00 Constipation, unspecified Colt Haque, DO 05/21/2019 M99.01 Segmental and somatic dysfunction [...] 04/29/2019 F33.1 Major depressive disorder, recurrent, moderate Haque, Colt, DO 04/29/2019 R00.0 Tachycardia, unspecified HaqueColt, DO 04/29/2019 I95.9 Hypotension, unspecified HaqueColt, DO 04/29/2019 E78.2 Mixed hyperlipidemia HaqueColt blackburn, DO 04/29/2019 R06.02 Shortness of breath Colt Haque, DO 04/29/2019 K21.9 Gastro-esophageal reflux disease without HaqueColt, esophagitis 04/29/2019 K59.00 Constipation, unspecified HaqueColt, DO 04/29/2019 M99.01 Segmental and somatic dysfunction of cervical HaqueColt blackburn, region 04/29/2019 M99.07 Segmental and somatic dysfunction of upper HaqueColt blackburn DO extremity 04/29/2019 M99.00 Segmental and somatic dysfunction of head Colt Haque DO region 04/29/2019 I34.1 Nonrheumatic mitral (valve) prolapse Colt Haque, DO 04/29/2019 M54.2 Cervicalgia Colt Haque, DO 04/29/2019 H81.10 Benign paroxysmal vertigo, unspecified ear Colt Haque , DO 04/29/2019 M72.2 Plantar fascial fibromatosis Colt Haque, DO 04/29/2019 Z68.28 Body mass index (BMI) 28.0-28.9, adult Colt Haque, 04/12/2019 Z01.419 Encounter for gynecological examination Low Gómez PA (general) (routine) without abnormal findings 04/12/2019 F33.1 Major depressive disorder, recurrent, moderate Low Gómez PA 03/26/2019 F41.1 Generalized anxiety disorder Colt Haque, DO 03/26/2019 F41.0 Panic disorder [episodic paroxysmal anxiety] Colt Haque , DO 03/26/2019 F33.1 Major depressive disorder, recurrent, moderate HaqueColt, DO 03/26/2019 R00.0 Tachycardia, unspecified HaqueColt blackburn, DO 03/26/2019 I95.9 Hypotension, unspecified HaqueColt, DO 03/26/2019 E78.2 Mixed hyperlipidemia HaqueColt blackburn, DO 03/26/2019 R06.02 Shortness of breath Colt Haque, 03/26/2019 K21.9 Gastro-esophageal reflux disease without Colt Haque DO esophagitis 03/26/2019 K59.00 Constipation, unspecified HaqueColtDO 03/26/2019 M99.01 Segmental and somatic dysfunction of cervical Colt Haque DO region 03/26/2019 I34.1 Nonrheumatic mitral (valve) prolapse Colt Haque DO 03/26/2019 M54.2 Cervicalgia Colt Haque DO 03/26/2019 H81.10 Benign paroxysmal vertigo, unspecified ear Colt Haque DO 03/26/2019 Z68.28 Body mass index (BMI) 28.0-28.9, adult Colt Haque DO Plan of Treatment Future Appointment(s):10/29/2019 4:15 pm - Colt Haque DO at [facility]09/24/2019 4:15 pm - Colt Haque DO at [facility]09/10/2019 4:15 pm - Colt Haque DO at [facility]08/20/2019 - Colt Haque DOF41.1 Generalized anxiety disorderComments: I had a long discussion with her today [...] She is currently taking Clonazepam 0.5 mg 1 pill po in the AM- may be causing sedation, so will have to monitorthis. Will use Alprazolam just for breakthrough symptoms- has been able to avoid this recently. Encouraged the patient to see a counselor. Will continue on Sertraline 150 mg. Appears to be doing better on this. I encouraged her to call [facility] to see them as she is interested in a support group they offer, plus she could do more counseling and see a prescriber thereFollow up:Follow up as scheduled.F41.0 Panic disorder [episodic [...] she is doing a little better on this.F33.1 Major depressive disorder, recurrent, moderateComments:Would like her to take Clonazepam 0.5 mg 1 pill po in the AM. Will see how she does at her next appt. I told her that she can use alprazolam 0.5 mg 1/2 a pill up to TID prn. Encouraged the patient to see a counselor. Will continue Sertraline 150 mg as she appears to be doing a little better on this.R00.0 Tachycardia, [...] of this can be related to her anxiety.E78.2 Mixed hyperlipidemiaComments:LDL is well controlled. Even though her 10 year risk is low, she is concerned about this due to family history. She would like to take Atorvastatin 10 mg po daily to limit her risk, but may be havingsome weakness with this. Will also use Coggon-3's for this. She will continue as long as she can tolerate this and will likely check labs soon.R06.02 Shortness of breathComments:SOB is causing her some problems. PFT was done and she thinks this was normal. Likely due to anxiety. She appears to hyperventilate at times.K21.9 Gastro-esophageal reflux disease without esophagitisComments:: Pt has [...] a HIDA scan. Will consider in the future.K59.00 Constipation, unspecifiedComments:Constipation appears better with her taking a stool softener BID and Miralax daily. Will continue current treatment and have her call if this is not improving. Saw GI. May need a colonoscopy in the future. She plans on calling GI to schedule an appt in the next few months.M99.01 Segmental and somatic dysfunction of cervical regionComments:3 areas- head, cervical, and upper extremities- treated with OMT as noted znaarW10.1 Nonrheumatic mitral (valve) prolapseComments:Pt has a history of MVP. Echo in 2018 showed no significant valvular abnormalities, but had mild L ventricular wall thickening. Will monitor in the future.M54.2 CervicalgiaComments:Pt has cervical spine pain. She had [...] into the office with any problems or concerns.L21.9 Seborrheic dermatitis, [id number] Sleep disorder, unspecifiedComments:A referral to was provided today. Will have a sleep study. Will continue to monitor.J32.9 Chronic sinusitis, unspecifiedComments:A referral to was provided today. Will continue to monitor. Functional Status Description No Information Available Mental Status Description No Information Available Referrals Refer to Reason for Referral Status Appt Date Garry Hunt MD Elevated cortisol level- rule out Fatmata's Closed 2018 referal being reviewed by referall coordinator - will call 9.30 [address] [place] [address] [phone] [facility] Anxiety/depression- would like to Patient Declined Services work with a support group referral faxed. I let the patient know that she needs to go do the intake and they will place her in the support group that fits best for her 06/08 Left message for Mr. Mackey at [facility] asking if the patient ever contacted them to schedule appt 06/16 [address] [facility] [address] [phone]
[2019-10-20 09:24] VITALS: BP 120/81
[2019-10-20 10:20] LABS: Influenza A Molecular Negative (Negative); Influenza B Molecular Negative (Negative)
--- NOTE | 2019-10-20 10:27 | UC ---
FLU HPI - HPI Summary HPI Summary: Pt presents with c/o generalized malaise, sinus pressure, pain, body aches. Pt was diagnosed with sinusitis 3 days ago and is taking augmentin. Pt states that body aches are "from head down spine and all over" - History of Current Complaint Chief Complaint: UCGeneralIllness Stated Complaint: SORE THROAT,CONGESTION,COUGH Time Seen by Provider: 10/20/19 10:13 Hx Obtained From: Patient Hx Last Menstrual Period: 09/22/19 ?: No Onset/Duration: Sudden Onset - nightbegan last Severity Currently: Moderate Severity Initially: Moderate Pain Intensity: 2 Associated Signs & Symptoms: Positive: Myalgia, Nasal Congestion Related Hx: Possible Flu/Infectious Exposure - Risk Factors Influenza Risk Factors: Negative - Allergy/Home Medications Allergies/Adverse Reactions: Allergies Allergy/AdvReac Type Severity Reaction Status Date / Time alcohol Allergy Hives Verified 10/20/19 09:17 diphenhydramine Allergy Tachycardia Verified 10/20/19 09:17 niacin Allergy Flushing Verified 10/20/19 09:17 nitrofurantoin Allergy Unknown Verified 10/20/19 09:17 Reaction Details promethazine [From Phenergan] Allergy Leg Cramps Verified 10/20/19 09:17 Sulfa (Sulfonamide Allergy Unknown Verified 10/20/19 09:17 Antibiotics) Reaction Details decongestants Allergy Intermediate heart races Uncoded 10/20/19 09:17 Home Medications: Home Medications Atorvastatin* [Lipitor 10 MG*] 10 mg PO DAILY 10/20/19 [History Confirmed ] Metoclopramide TAB* [Reglan TAB*] 10 mg PO Q6H PRN 10/20/19 [History Confirmed 10/20/19] PMH/Surg Hx/FS Hx/Imm Hx Previously Healthy: Yes - Surgical History Surgical History: Yes Surgery Procedure, Year, and Place: Lasik eye surgery. TUBES IN EARS - Family History Known Family History: Positive: Hypertension, Diabetes, Other - depression, anxiety, supraventricular tachycardia - Social History Occupation: Employed Full-time Lives: With Family Alcohol Use: None Substance Use Type: None Smoking Status (MU): Former Smoker Type: Cigarettes Amount Used/How Often: Some Day Smoker Length of Time of Smoking/Using Tobacco: ON and Off for 10 Years Have You Smoked in the Last Year: No When Did the Patient Quit Smoking/Using Tobacco: ~2007 - Immunization History Most Recent Influenza Vaccination: Not the 2013/2014 season Most Recent Tetanus Shot: UTD Vaccination Up to Date: Yes Review of Systems All Other Systems Reviewed And Are Negative: Yes Constitutional: Positive: Chills, Fatigue Skin: Positive: Negative Eyes: Positive: Negative ENT: Positive: Sinus Congestion, Sinus Pain/Tenderness Respiratory: Positive: Cough Cardiovascular: Positive: Negative Gastrointestinal: Positive: Negative Genitourinary: Positive: Negative Motor: Positive: Negative Neurovascular: Positive: Negative Musculoskeletal: Positive: Myalgia Neurological/Mental Status: Positive: Negative Psychological: Positive: Negative Is Patient Immunocompromised?: No Physical Exam Triage Information Reviewed: Yes Appearance: Well-Nourished Vital Signs: Initial Vital Signs Temp 98.4 F 10/20/19 09:20 Pulse 96 10/20/19 09:20 Resp 15 10/20/19 09:20 BP 120/81 10/20/19 09:20 Pulse Ox 99 10/20/19 09:20 Vital Signs Reviewed: Yes Eye Exam: Normal ENT: Positive: Sinus tenderness Dental Exam: Normal Neck exam: Normal Respiratory: Positive: Normal breath sounds, No respiratory distress Musculoskeletal Exam: Other - myalgia Neurological Exam: Normal Psychological Exam: Normal Skin: Positive: Rashes Flu Course/Dx - Differential Dx/Diagnosis Differential Diagnosis/HQI/PQRI: Influenza Provider Diagnosis: Viral syndrome Discharge ED - Sign-Out/Discharge Documenting (check all that apply): Patient Departure All imaging exams completed and their final reports reviewed: No Studies - Discharge Plan Condition: Stable Disposition: HOME Prescriptions: Guaifenesin/Pseudoephedrne HCl [Mucinex D ER 600-60 mg Tablet] 1 each PO Q12H # 14 tab.er.12h predniSONE 10 mg TAB [Deltasone 10 MG TAB*] 10 mg PO DAILY #12 tab Patient Education Materials: Viral Syndrome (ED) Forms: *Work Release Referrals: Colt Haque DO [Primary Care Provider] - If Needed - Billing Disposition and Condition Condition: STABLE Disposition: Home
== END 2019-10-20 10:38 | disposition home or self-care (01) ==
LOC: UCCORT 08:24
DX: B34.9 Viral infection, unspecified (principal); R53.81 Other malaise; M79.10 Myalgia, unspecified site; R53.83 Other fatigue; R68.83 Chills (without fever); R05 Cough; R09.81 Nasal congestion; Z91.09 Other allergy status, other than to drugs and biological substances; Z88.8 Allergy status to other drugs, medicaments and biological substances; Z88.1 Allergy status to other antibiotic agents; Z88.2 Allergy status to sulfonamides; Z87.891 Personal history of nicotine dependence
CPT/HCPCS: 87651; 99212; G0463